=== PATIENT | female | born 1985 | race Caucasian/White ===

== ENCOUNTER 2020-12-23 16:14 | Emergency (ER) | payer SELFPAY ==
[~2020-12-23] VITALS: Ht 175.3 cm; Wt 68.7 kg
[~2020-12-23 16:14] MED LIST: INTRA UTERINE DEVICE
[2020-12-23] MEDS ORDERED: ULTRAM 50MG50 MG PO (16:33)
== END 2020-12-23 17:01 | disposition home or self-care (01) ==
LOC: ER 16:28
DX: N64.4 Mastodynia (principal); Z80.3 Family history of malignant neoplasm of breast
CPT/HCPCS: 99283

== ENCOUNTER 2021-05-02 19:40 | Inpatient (IN) | payer SELFPAY ==
[~2021-05-02] VITALS: Ht 149.9 cm; Wt 73.5 kg
[2021-05-02 00:15] VITALS: BP 140/90
[~2021-05-02 19:40] MED LIST changes: +ULTRAM 50MG50 MG PO
[2021-05-02] MEDS ORDERED: SODIUM CHLORIDE 0.9% 1000ML 1,000 ML IV STA (19:54)
[2021-05-02] MEDS ORDERED: DILTIAZEM HCL 125 ML IV STA (19:59)
[2021-05-02] MEDS ORDERED: DILTIAZEM HCL 5 MG/ML 5 ML VIAL IV STA (19:59)
[2021-05-02] MEDS ORDERED: ASPIRIN 81 MG CHEW TAB PO ONE (20:00)
[2021-05-02 20:14] LABS: BASOPHILS # (AUTO) 0.1 (0.0-0.1); EOSINOPHILS # (AUTO) 0.1 (0.0-0.4); EOSINOPHILS % 1.6 % (0.0-6.0); HEMATOCRIT 37.7 % (34.2-44.1); HEMOGLOBIN 12.1 g/dL (12.0-16.0); LYMPHOCYTES # (AUTO) 2.3 (1.0-3.2); MEAN CORPUSCULAR HEMOGLOBIN 27.6 pg (28-32); MEAN CORPUSCULAR HGB CONC 32.1 g/dL (31-35); MEAN CORPUSCULAR VOLUME 85.9 fL (81-99); MONOCYTES # (AUTO) 0.6 (0.2-0.8); MONOCYTES % 8.4 % (4.4-11.3); NEUTROPHILS # (AUTO) 3.9 (2.1-6.9); NEUTROPHILS % 55.7 % (38.7-80.0); PLATELET COUNT 279 x10e3/uL (140-360); RED BLOOD COUNT 4.39 x10e6/uL (3.6-5.1); RED CELL DISTRIBUTION WIDTH 16.1 % (11.7-14.4)
[2021-05-02 20:43] LABS: ALANINE AMINOTRANSFERASE 15 IU/L (0-55); ALBUMIN 4.3 g/dL (3.5-5.0); ALBUMIN/GLOBULIN RATIO 1.2 (0.8-2.0); ALKALINE PHOSPHATASE 60 IU/L (40-150); ANION GAP 19.6 mmol/L (8-16); BLOOD UREA NITROGEN 5 mg/dL (7-26); BUN/CREATININE RATIO 6 (6-25); CALCIUM 9.1 mg/dL (8.4-10.2); CARBON DIOXIDE 20 mmol/L (22-29); CHLORIDE 101 mmol/L (98-107); CREATINE KINASE 154 IU/L (29-168); CREATININE, SERUM 0.85 mg/dL (0.57-1.11); EST GLOMERULAR FILTRATION RATE 76 ML/MIN (60-); GLUCOSE 127 mg/dL (74-118); SODIUM 138 mmol/L (136-145)
[2021-05-02 21:06] LABS: POTASSIUM 2.6 mmol/L (3.5-5.1)
[2021-05-02] MEDS ORDERED: POTASSIUM CHLORIDE 20 MEQ TAB CR PO STA (21:11)
[2021-05-02] MEDS ORDERED: IOPAMIDOL 370 MG/ML 200 ML INFUS..BTL INJ ONE (21:23)
[2021-05-02] MEDS ORDERED: SODIUM CHLORIDE 0.9% 50ML 50 ML ONE (21:23)
[2021-05-02] MEDS ORDERED: ONDANSETRON HCL INJ 2MG/ML 2ML 2 MG/ML VIAL IV PRN (21:30)
[2021-05-02] MEDS ORDERED: MORPHINE SULFATE INJ 2 MG/ML SYR IV PRN (21:30)
[2021-05-03] VITALS: BP 155/102
[2021-05-03 00:15] VITALS: BP 155/102
[2021-05-03] MEDS: SODIUM CHLORIDE 0.9% 1000ML 1,000 ML IV SCH ×2 (01:00→05:30)
[2021-05-03 04:00] VITALS: BP 143/100
[2021-05-03 07:00] VITALS: BP 147/103
[2021-05-03 07:30] LABS: BASOPHILS # (AUTO) 0.1 (0.0-0.1); BASOPHILS % 1.1 % (0.0-1.0); EOSINOPHILS # (AUTO) 0.1 (0.0-0.4); EOSINOPHILS % 1.6 % (0.0-6.0); HEMATOCRIT 35.1 % (34.2-44.1); HEMOGLOBIN 10.9 g/dL (12.0-16.0); LYMPHOCYTES # (AUTO) 2.1 (1.0-3.2); LYMPHOCYTES % 33.5 % (18.0-39.1); MEAN CORPUSCULAR HEMOGLOBIN 27.5 pg (28-32); MEAN CORPUSCULAR HGB CONC 31.1 g/dL (31-35); MEAN CORPUSCULAR VOLUME 88.6 fL (81-99); MONOCYTES # (AUTO) 0.6 (0.2-0.8); MONOCYTES % 9.1 % (4.4-11.3); NEUTROPHILS # (AUTO) 3.4 (2.1-6.9); NEUTROPHILS % 54.5 % (38.7-80.0); PLATELET COUNT 241 x10e3/uL (140-360); RED BLOOD COUNT 3.96 x10e6/uL (3.6-5.1); RED CELL DISTRIBUTION WIDTH 16.6 % (11.7-14.4)
[2021-05-03 08:06] LABS: ALBUMIN 3.9 g/dL (3.5-5.0); ALBUMIN/GLOBULIN RATIO 1.3 (0.8-2.0); ANION GAP 14.1 mmol/L (8-16); CALCIUM 8.3 mg/dL (8.4-10.2); CREATININE, SERUM 0.78 mg/dL (0.57-1.11); POTASSIUM 3.1 mmol/L (3.5-5.1)
[2021-05-03] MEDS ORDERED: POTASSIUM CHLORIDE 10MEQ EA PO NR ×2 (08:30→10:30)
[2021-05-03] MEDS ORDERED: MAGNESIUM OXIDE 400 MG TAB PO NR (08:30)
[2021-05-03] MEDS ORDERED: BENADRYL25 M1 PO (08:36)
[2021-05-03] MEDS ORDERED: IBUPROFEN200 MG PO (08:36)
[2021-05-03] MEDS ORDERED: ALEVE220 M1 (08:36)
[2021-05-03] MEDS ORDERED: SUDAFED PE HEA PO (08:36)
[2021-05-03 10:18] LABS: AMPHETAMINES SCREEN,URINE NEGATIVE (NEGATIVE); BENZODIAZEPINES SCREEN,URINE NEGATIVE (NEGATIVE); PHENCYCLIDINE SCREEN,URINE NEGATIVE (NEGATIVE)
[2021-05-03 10:22] LABS: CREATINE KINASE MB 1.4 ng/mL (0-5.0)
[2021-05-03 10:25] LABS: CLARITY,URINE CLEAR (CLEAR); COLOR,URINE YELLOW (YELLOW); KETONES,URINE NEGATIVE (NEGATIVE); LEUKOCYTE ESTERASE ,URINE NEGATIVE (NEGATIVE); NITRITE,URINE NEGATIVE (NEGATIVE); PROTEIN,URINE DIPSTICK NEGATIVE (NEGATIVE); URINE UROBILINOGEN 0.2 mg/dL (0.2 - 1)
[2021-05-03 10:41] LABS: EPITHELIAL CELLS,URINE RARE /LPF; MUCUS,URINE FEW (RARE)
[2021-05-03 11:14] VITALS: BP 141/94
[2021-05-03] MEDS ORDERED: COZAAR25 MG PO (11:58)
[2021-05-03] MEDS ORDERED: LOSARTAN POTASSIUM 25 MG TAB PO SCH (12:30)
[2021-05-03 15:30] VITALS: BP 144/96
[2021-05-03 15:42] LABS: ANION GAP 14.2 mmol/L (8-16); CALCIUM 8.7 mg/dL (8.4-10.2); CREATININE, SERUM 0.68 mg/dL (0.57-1.11); POTASSIUM 4.2 mmol/L (3.5-5.1)
[2021-05-03 16:32] LABS: CREATINE KINASE MB 1.4 ng/mL (0-5.0)
== END 2021-05-03 16:20 | disposition home or self-care (01) | DRG 310 ==
LOC: ER 19:59 → ERHOLD 21:56 → MED/SURG 05-03 00:16 → OBSVTOIN 05-03 08:40
PROVIDERS: ADMIT Internal Medicine; ATTEND Internal Medicine
DX: I48.91 Unspecified atrial fibrillation (principal); Z79.01 Long term (current) use of anticoagulants; I48.92 Unspecified atrial flutter; E87.6 Hypokalemia; E83.42 Hypomagnesemia; E66.01 Morbid (severe) obesity due to excess calories; Z68.32 Body mass index [BMI] 32.0-32.9, adult; Z20.822 Contact with and (suspected) exposure to COVID-19; R21 Rash and other nonspecific skin eruption; I44.30 Unspecified atrioventricular block
CPT/HCPCS: 36415; 71260; 74177; 80048; 80053; 80307; 80320; 81001; 81025; 82465; 82550; 82553; 83690; 83735; 83880; 84443; 84484; 85025; 85379; 93005; 93306; 99284; G0378; J2270; J2405; J7030; Q9967; U0002

== ENCOUNTER 2021-05-30 09:57 | Emergency (ER) | payer SELFPAY ==
[~2021-05-30] VITALS: Ht 302.3 cm; Wt 73.5 kg
[~2021-05-30 09:57] MED LIST changes: +ALEVE220 M1; +BENADRYL25 M1 PO; +COZAAR25 MG PO; +IBUPROFEN200 MG PO; +SUDAFED PE HEA PO
[2021-05-30] MEDS ORDERED: SODIUM CHLORIDE 0.9% 1000ML 1,000 ML IV STA (10:25)
[2021-05-30 10:54] LABS: BASOPHILS # (AUTO) 0.1 (0.0-0.1); BASOPHILS % 1.4 % (0.0-1.0); EOSINOPHILS # (AUTO) 0.2 (0.0-0.4); EOSINOPHILS % 2.8 % (0.0-6.0); HEMATOCRIT 39.2 % (34.2-44.1); HEMOGLOBIN 12.1 g/dL (12.0-16.0); LYMPHOCYTES # (AUTO) 2.4 (1.0-3.2); LYMPHOCYTES % 27.7 % (18.0-39.1); MEAN CORPUSCULAR HEMOGLOBIN 27.2 pg (28-32); MEAN CORPUSCULAR HGB CONC 30.9 g/dL (31-35); MEAN CORPUSCULAR VOLUME 88.1 fL (81-99); MONOCYTES # (AUTO) 0.5 (0.2-0.8); MONOCYTES % 5.8 % (4.4-11.3); NEUTROPHILS # (AUTO) 5.3 (2.1-6.9); NEUTROPHILS % 62.1 % (38.7-80.0); PLATELET COUNT 398 x10e3/uL (140-360); RED BLOOD COUNT 4.45 x10e6/uL (3.6-5.1); RED CELL DISTRIBUTION WIDTH 18.8 % (11.7-14.4)
[2021-05-30 11:06] LABS: CLARITY,URINE CLEAR (CLEAR); COLOR,URINE YELLOW (YELLOW); KETONES,URINE 2+ (NEGATIVE); LEUKOCYTE ESTERASE ,URINE NEGATIVE (NEGATIVE); NITRITE,URINE NEGATIVE (NEGATIVE); PROTEIN,URINE DIPSTICK 2+ (NEGATIVE); URINE UROBILINOGEN 0.2 mg/dL (0.2 - 1)
[2021-05-30 11:07] LABS: AMPHETAMINES SCREEN,URINE NEGATIVE (NEGATIVE); BENZODIAZEPINES SCREEN,URINE NEGATIVE (NEGATIVE); PHENCYCLIDINE SCREEN,URINE NEGATIVE (NEGATIVE)
[2021-05-30 11:19] LABS: ALANINE AMINOTRANSFERASE 22 IU/L (0-55); ALBUMIN 4.5 g/dL (3.5-5.0); ALBUMIN/GLOBULIN RATIO 1.3 (0.8-2.0); ALKALINE PHOSPHATASE 52 IU/L (40-150); ANION GAP 22.3 mmol/L (8-16); BLOOD UREA NITROGEN 11 mg/dL (7-26); BUN/CREATININE RATIO 14 (6-25); CALCIUM 8.7 mg/dL (8.4-10.2); CARBON DIOXIDE 17 mmol/L (22-29); CHLORIDE 106 mmol/L (98-107); CREATINE KINASE 163 IU/L (29-168); CREATININE, SERUM 0.78 mg/dL (0.57-1.11); EST GLOMERULAR FILTRATION RATE 84 ML/MIN (60-); GLUCOSE 61 mg/dL (74-118); MAGNESIUM 1.7 MG/DL (1.3-2.1); POTASSIUM 3.3 mmol/L (3.5-5.1); SODIUM 142 mmol/L (136-145)
[2021-05-30 11:36] LABS: BACTERIA,URINE RARE /HPF; EPITHELIAL CELLS,URINE FEW /LPF; RBC,URINE 0-5 /HPF (0-5)
[2021-05-30 11:39] LABS: THYROID STIMULATING HORMONE 0.249 uIU/mL (0.350-4.940)
[2021-05-30] MEDS ORDERED: PROPRANOLOL HCL 40 MG TAB PO ONE (12:30)
== END 2021-05-30 12:50 | disposition home or self-care (01) ==
LOC: ER 10:10
DX: M79.18 Myalgia, other site (principal); R53.1 Weakness; E05.90 Thyrotoxicosis, unspecified without thyrotoxic crisis or storm; I10 Essential (primary) hypertension; R94.31 Abnormal electrocardiogram [ECG] [EKG]; Z20.822 Contact with and (suspected) exposure to COVID-19
CPT/HCPCS: 36415; 80053; 80307; 81001; 82550; 82553; 83735; 84443; 84484; 85025; 93005; 99283; J7030; U0002

== ENCOUNTER 2021-07-17 01:15 | Emergency (ER) | payer BC ==
[~2021-07-17] VITALS: Ht 302.3 cm; Wt 73.5 kg
[2021-07-17 01:01] LABS: BASOPHILS # (AUTO) 0.1 (0.0-0.1); BASOPHILS % 1.4 % (0.0-1.0); EOSINOPHILS # (AUTO) 0.1 (0.0-0.4); HEMATOCRIT 39.6 % (34.2-44.1); HEMOGLOBIN 13.1 g/dL (12.0-16.0); LYMPHOCYTES # (AUTO) 2.9 (1.0-3.2); LYMPHOCYTES % 55.7 % (18.0-39.1); MEAN CORPUSCULAR HEMOGLOBIN 29.7 pg (28-32); MEAN CORPUSCULAR HGB CONC 33.1 g/dL (31-35); MEAN CORPUSCULAR VOLUME 89.8 fL (81-99); MONOCYTES # (AUTO) 0.4 (0.2-0.8); MONOCYTES % 8.3 % (4.4-11.3); NEUTROPHILS # (AUTO) 1.7 (2.1-6.9); NEUTROPHILS % 33.6 % (38.7-80.0); PLATELET COUNT 306 x10e3/uL (140-360); RED BLOOD COUNT 4.41 x10e6/uL (3.6-5.1); RED CELL DISTRIBUTION WIDTH 18.6 % (11.7-14.4)
[2021-07-17] MEDS ORDERED: SODIUM CHLORIDE 0.9% 1000ML 1,000 ML IV STA (01:19)
[2021-07-17 01:27] LABS: AMPHETAMINES SCREEN,URINE NEGATIVE (NEGATIVE); BENZODIAZEPINES SCREEN,URINE NEGATIVE (NEGATIVE); PHENCYCLIDINE SCREEN,URINE NEGATIVE (NEGATIVE)
[2021-07-17] MEDS ORDERED: ASPIRIN 81 MG CHEW TAB PO ONE (01:30)
[2021-07-17] MEDS ORDERED: KETOROLAC TROMETHAMINE 30 MG/ML VIAL IV STA (01:32)
[2021-07-17 01:47] LABS: ALBUMIN 4.1 g/dL (3.5-5.0); ALBUMIN/GLOBULIN RATIO 1.1 (0.8-2.0); CALCIUM 8.4 mg/dL (8.4-10.2); CREATININE, SERUM 0.8 mg/dL (0.57-1.11)
[2021-07-17 01:53] LABS: CREATINE KINASE MB 1.1 ng/mL (0-5.0)
[2021-07-17 07:00] LABS: AMPHETAMINES SCREEN,URINE NEGATIVE (NEGATIVE); BENZODIAZEPINES SCREEN,URINE NEGATIVE (NEGATIVE); PHENCYCLIDINE SCREEN,URINE NEGATIVE (NEGATIVE)
== END 2021-07-17 03:08 | disposition home or self-care (01) ==
LOC: ER 01:19
DX: R07.89 Other chest pain (principal); R10.13 Epigastric pain; I10 Essential (primary) hypertension; E07.9 Disorder of thyroid, unspecified; F10.129 Alcohol abuse with intoxication, unspecified; F17.210 Nicotine dependence, cigarettes, uncomplicated
CPT/HCPCS: 36415; 71045; 80053; 80307; 80320; 81025; 82550; 82553; 83880; 84484; 85025; 93005; 99284; J7030

== ENCOUNTER 2021-10-03 20:45 | Emergency (ER) | payer BC ==
[~2021-10-03] VITALS: Ht 302.3 cm; Wt 73.5 kg
[2021-10-03] MEDS ORDERED: LORAZEPAM INJ 2 MG/ML VIAL INJ STA (22:11)
[2021-10-03] MEDS ORDERED: SODIUM CHLORIDE 0.9% 1000ML 1,000 ML IV STA (22:12)
[2021-10-03 22:30] LABS: BASOPHILS # (AUTO) 0.1 (0.0-0.1); EOSINOPHILS % 0.2 % (0.0-6.0); HEMATOCRIT 34.9 % (34.2-44.1); HEMOGLOBIN 11.3 g/dL (12.0-16.0); LYMPHOCYTES # (AUTO) 1.9 (1.0-3.2); LYMPHOCYTES % 30.2 % (18.0-39.1); MEAN CORPUSCULAR HEMOGLOBIN 30.3 pg (28-32); MEAN CORPUSCULAR HGB CONC 32.4 g/dL (31-35); MEAN CORPUSCULAR VOLUME 93.6 fL (81-99); MONOCYTES # (AUTO) 0.5 (0.2-0.8); MONOCYTES % 8.6 % (4.4-11.3); NEUTROPHILS # (AUTO) 3.7 (2.1-6.9); NEUTROPHILS % 59.8 % (38.7-80.0); PLATELET COUNT 213 x10e3/uL (140-360); RED BLOOD COUNT 3.73 x10e6/uL (3.6-5.1); RED CELL DISTRIBUTION WIDTH 16.5 % (11.7-14.4)
[2021-10-03 22:34] LABS: AMPHETAMINES SCREEN,URINE NEGATIVE (NEGATIVE); BENZODIAZEPINES SCREEN,URINE NEGATIVE (NEGATIVE); CLARITY,URINE CLEAR (CLEAR); COLOR,URINE YELLOW (YELLOW); KETONES,URINE NEGATIVE (NEGATIVE); LEUKOCYTE ESTERASE ,URINE NEGATIVE (NEGATIVE); NITRITE,URINE NEGATIVE (NEGATIVE); PHENCYCLIDINE SCREEN,URINE NEGATIVE (NEGATIVE); PROTEIN,URINE DIPSTICK 1+ (NEGATIVE); URINE UROBILINOGEN 0.2 mg/dL (0.2 - 1)
[2021-10-03 22:38] LABS: INR 0.95; PROTHROMBIN TIME 13.4 seconds (11.9-14.5)
[2021-10-03 22:39] LABS: PARTIAL THROMBOPLASTIN TIME 31.5 seconds (23.8-35.5)
[2021-10-03 22:46] LABS: AMORPHOUS SEDIMENT,URINE FEW (FEW); BACTERIA,URINE FEW /HPF; EPITHELIAL CELLS,URINE FEW /LPF; RBC,URINE 0-5 /HPF (0-5); WBC,URINE (MAN) 0-5 /HPF (0-5)
[2021-10-03 22:48] LABS: ALANINE AMINOTRANSFERASE 54 IU/L (0-55); ALBUMIN 4.1 g/dL (3.5-5.0); ALBUMIN/GLOBULIN RATIO 1.1 (0.8-2.0); ALKALINE PHOSPHATASE 76 IU/L (40-150); ANION GAP 19.2 mmol/L (8-16); BLOOD UREA NITROGEN 12 mg/dL (7-26); BUN/CREATININE RATIO 15 (6-25); CALCIUM 8.9 mg/dL (8.4-10.2); CARBON DIOXIDE 20 mmol/L (22-29); CHLORIDE 104 mmol/L (98-107); CREATINE KINASE 283 IU/L (29-168); CREATININE, SERUM 0.81 mg/dL (0.57-1.11); EST GLOMERULAR FILTRATION RATE 80 ML/MIN (60-); GLUCOSE 103 mg/dL (74-118); POTASSIUM 4.2 mmol/L (3.5-5.1); SODIUM 139 mmol/L (136-145)
[2021-10-03 22:51] LABS: SALICYLATE < 5.0 mg/dL (0-30)
[2021-10-03 23:04] LABS: FREE T4 (FREE THYROXINE) 0.75 ng/dL (0.8-1.8); THYROID STIMULATING HORMONE 2.527 uIU/mL (0.350-4.940)
[2021-10-03] MEDS ORDERED: HYDROXYZINE HCL25 MG PO (23:57)
[2021-10-04] MEDS ORDERED: LORAZEPAM INJ 2 MG/ML VIAL IV ONE
== END 2021-10-04 02:22 | disposition home or self-care (01) ==
LOC: ER 21:36
DX: F41.0 Panic disorder [episodic paroxysmal anxiety] (principal); T37.8X5A Adverse effect of other specified systemic anti-infectives and antiparasitics, initial encounter; I10 Essential (primary) hypertension; I48.91 Unspecified atrial fibrillation; F41.9 Anxiety disorder, unspecified; R94.31 Abnormal electrocardiogram [ECG] [EKG]
CPT/HCPCS: 36415; 71045; 80053; 80307; 80329 ×2; 81001; 81025; 82550; 82553; 83880; 84439; 84443; 84484; 85025; 85610; 85730; 93005; 99284; J2060; J7030

== ENCOUNTER 2021-11-02 08:22 | Emergency (ER) | payer BC ==
[~2021-11-02] VITALS: Ht 175.3 cm; Wt 73.5 kg
[~2021-11-02 08:22] MED LIST changes: +HYDROXYZINE HCL25 MG PO
[2021-11-02] MEDS ORDERED: SODIUM CHLORIDE 0.9% 1000ML 1,000 ML IV ONE (09:00)
[2021-11-02 09:14] LABS: BASOPHILS # (AUTO) 0.1 (0.0-0.1); BASOPHILS % 1.2 % (0.0-1.0); EOSINOPHILS # (AUTO) 0.1 (0.0-0.4); HEMATOCRIT 37.3 % (34.2-44.1); HEMOGLOBIN 12.6 g/dL (12.0-16.0); LYMPHOCYTES # (AUTO) 1.3 (1.0-3.2); LYMPHOCYTES % 25.7 % (18.0-39.1); MEAN CORPUSCULAR HEMOGLOBIN 30.7 pg (28-32); MEAN CORPUSCULAR HGB CONC 33.8 g/dL (31-35); MEAN CORPUSCULAR VOLUME 90.8 fL (81-99); MONOCYTES # (AUTO) 0.5 (0.2-0.8); MONOCYTES % 8.8 % (4.4-11.3); NEUTROPHILS # (AUTO) 3.2 (2.1-6.9); NEUTROPHILS % 62.9 % (38.7-80.0); PLATELET COUNT 201 x10e3/uL (140-360); RED BLOOD COUNT 4.11 x10e6/uL (3.6-5.1); RED CELL DISTRIBUTION WIDTH 15.6 % (11.7-14.4)
[2021-11-02 09:46] LABS: ALBUMIN 3.6 g/dL (3.5-5.0); ALBUMIN/GLOBULIN RATIO 0.9 (0.8-2.0); CALCIUM 7.9 mg/dL (8.4-10.2); CREATININE, SERUM 0.85 mg/dL (0.57-1.11)
[2021-11-02 10:19] LABS: FREE T4 (FREE THYROXINE) 0.77 ng/dL (0.8-1.8); THYROID STIMULATING HORMONE 3.191 uIU/mL (0.350-4.940)
[2021-11-02] MEDS ORDERED: ONDANSETRON ODT4 MG PO (11:30)
[2021-11-02] MEDS ORDERED: POTASSIUM CHLORIDE 20 MEQ TAB CR PO ONE (11:30)
[2021-11-02 11:38] VITALS: BP 142/100
[2021-11-03] MEDS ORDERED: METHIMAZOLE5 MG PO (00:28)
[2021-11-03] MEDS ORDERED: PROPRANOLOL HCL80 MG PO (00:28)
[2021-11-04] MEDS ORDERED: REGLAN5 MG PO (08:44)
[2021-11-04] MEDS ORDERED: ONDANSETRON ODT4 MG PO (08:44)
[2021-11-04] MEDS ORDERED: PANTOPRAZOLE SO40 MG PO (08:44)
[2021-11-04] MEDS ORDERED: MAALOX MAXIMUM355 ML PO (08:57)
== END 2021-11-02 11:35 | disposition home or self-care (01) ==
LOC: ER 08:26
DX: R00.2 Palpitations (principal); R06.00 Dyspnea, unspecified; R07.89 Other chest pain; R11.2 Nausea with vomiting, unspecified; E87.6 Hypokalemia; I10 Essential (primary) hypertension; I48.91 Unspecified atrial fibrillation; E03.9 Hypothyroidism, unspecified; F41.9 Anxiety disorder, unspecified; Z20.822 Contact with and (suspected) exposure to COVID-19; R73.9 Hyperglycemia, unspecified
CPT/HCPCS: 36415; 71046; 80053; 84439; 84443; 84484; 84702; 85025; 93005; 99284; J7030; U0002

== ENCOUNTER 2021-11-02 14:41 | Inpatient (IN) | payer BC ==
[~2021-11-02] VITALS: Ht 175.3 cm; Wt 73.5 kg
[~2021-11-02 14:41] MED LIST changes: +ONDANSETRON ODT4 MG PO
[2021-11-02] MEDS ORDERED: ONDANSETRON HCL INJ 2MG/ML 2ML 2 MG/ML VIAL IV STA (15:34)
[2021-11-02] MEDS ORDERED: SODIUM CHLORIDE 0.9% 1000ML 1,000 ML IV STA (15:34)
[2021-11-02 15:44] LABS: BASOPHILS # (AUTO) 0.1 (0.0-0.1); BASOPHILS % 0.4 % (0.0-1.0); HEMATOCRIT 37.5 % (34.2-44.1); HEMOGLOBIN 12.5 g/dL (12.0-16.0); LYMPHOCYTES # (AUTO) 0.8 (1.0-3.2); LYMPHOCYTES % 5.8 % (18.0-39.1); MEAN CORPUSCULAR HEMOGLOBIN 30.9 pg (28-32); MEAN CORPUSCULAR HGB CONC 33.3 g/dL (31-35); MEAN CORPUSCULAR VOLUME 92.8 fL (81-99); MONOCYTES # (AUTO) 0.6 (0.2-0.8); NEUTROPHILS # (AUTO) 12.8 (2.1-6.9); NEUTROPHILS % 89.5 % (38.7-80.0); PLATELET COUNT 199 x10e3/uL (140-360); RED BLOOD COUNT 4.04 x10e6/uL (3.6-5.1); RED CELL DISTRIBUTION WIDTH 15.5 % (11.7-14.4)
[2021-11-02 15:54] LABS: INR 1.11; PROTHROMBIN TIME 15.1 seconds (11.9-14.5)
[2021-11-02 15:55] LABS: PARTIAL THROMBOPLASTIN TIME 28.3 seconds (23.8-35.5)
[2021-11-02 15:57] LABS: ALBUMIN 3.9 g/dL (3.5-5.0); ANION GAP 19.8 mmol/L (8-16); CALCIUM 8.4 mg/dL (8.4-10.2); CREATININE, SERUM 0.83 mg/dL (0.57-1.11); POTASSIUM 3.8 mmol/L (3.5-5.1)
[2021-11-02] MEDS ORDERED: SODIUM CHLORIDE 0.9% 50ML 50 ML ONE (16:25)
[2021-11-02] MEDS ORDERED: IOPAMIDOL 370 MG/ML 200 ML INFUS..BTL INJ ONE (16:26)
[2021-11-02] MEDS ORDERED: Morphine 4mg Syringe 4 MG/ML INJ IV PRN (17:45)
[2021-11-02] MEDS: D5.45%NS/KCL 20MEQ 1,000 ML IV SCH (18:04)
[2021-11-02] MEDS: ONDANSETRON HCL INJ 2MG/ML 2ML 2 MG/ML VIAL IV PRN ×2 (18:04→21:21)
[2021-11-02 20:18] VITALS: BP 140/94
[2021-11-02 21:00] VITALS: BP 140/94
[2021-11-02] MEDS: LOSARTAN POTASSIUM 25 MG TAB PO SCH (21:00)
[2021-11-02] MEDS: Morphine 2mg Syringe 2 MG/ML SYR IV PRN (21:21)
[2021-11-02 22:57] LABS: AMYLASE 62 U/L (25-125); LIPASE 107 U/L (8-78)
[2021-11-02 23:30] LABS: CLARITY,URINE CLEAR (CLEAR); COLOR,URINE YELLOW (YELLOW); KETONES,URINE NEGATIVE (NEGATIVE); LEUKOCYTE ESTERASE ,URINE NEGATIVE (NEGATIVE); NITRITE,URINE NEGATIVE (NEGATIVE); PROTEIN,URINE DIPSTICK 1+ (NEGATIVE); URINE UROBILINOGEN 1 mg/dL (0.2 - 1)
[2021-11-02 23:33] LABS: BACTERIA,URINE FEW /HPF; EPITHELIAL CELLS,URINE FEW /LPF; RBC,URINE 0-5 /HPF (0-5)
[2021-11-03] VITALS (8 sets, daily range): BP systolic 123–150; BP diastolic 88–105
[2021-11-03] MEDS: Morphine 2mg Syringe 2 MG/ML SYR IV PRN ×5 (00:06→22:08)
[2021-11-03] MEDS ORDERED: PROPRANOLOL HCL80 MG PO (00:28)
[2021-11-03] MEDS ORDERED: METHIMAZOLE5 MG PO (00:28)
[2021-11-03] MEDS ORDERED: SODIUM CHLORIDE 0.9% 1000ML 1,000 ML IV SCH (00:45)
[2021-11-03] MEDS ORDERED: HYDRALAZINE HCL 20 MG/ML VIAL IV PRN (00:45)
[2021-11-03] MEDS: LOSARTAN POTASSIUM 25 MG TAB PO SCH (00:48)
[2021-11-03] MEDS: D5.45%NS/KCL 20MEQ 1,000 ML IV SCH ×2 (01:45→03:29)
[2021-11-03] MEDS: ONDANSETRON HCL INJ 2MG/ML 2ML 2 MG/ML VIAL IV PRN ×2 (02:31→06:29)
[2021-11-03 05:01] LABS: BASOPHILS # (AUTO) 0.1 (0.0-0.1); BASOPHILS % 0.6 % (0.0-1.0); EOSINOPHILS % 0.2 % (0.0-6.0); HEMATOCRIT 33.3 % (34.2-44.1); HEMOGLOBIN 10.6 g/dL (12.0-16.0); LYMPHOCYTES # (AUTO) 2.2 (1.0-3.2); LYMPHOCYTES % 21.6 % (18.0-39.1); MEAN CORPUSCULAR HEMOGLOBIN 30.8 pg (28-32); MEAN CORPUSCULAR HGB CONC 31.8 g/dL (31-35); MEAN CORPUSCULAR VOLUME 96.8 fL (81-99); MONOCYTES # (AUTO) 0.8 (0.2-0.8); MONOCYTES % 7.7 % (4.4-11.3); NEUTROPHILS % 69.7 % (38.7-80.0); PLATELET COUNT 137 x10e3/uL (140-360); RED BLOOD COUNT 3.44 x10e6/uL (3.6-5.1)
[2021-11-03 05:23] LABS: ALBUMIN 3.4 g/dL (3.5-5.0); CALCIUM 7.7 mg/dL (8.4-10.2); CREATININE, SERUM 0.78 mg/dL (0.57-1.11)
[2021-11-03] MEDS ORDERED: POTASSIUM CHLORIDE 10MEQ/100ML 200 ML IV ONE (11:45)
[2021-11-03] MEDS ORDERED: POTASSIUM CHLORIDE 20 MEQ TAB CR PO ONE ×2 (12:00→12:15)
[2021-11-03] MEDS: Pantoprazole IV 40 MG in SODIUM CHLORIDE 0.9% 50ML 50 ML IV SCH ×3 (12:05→20:02)
[2021-11-03] MEDS: METOCLOPRAMIDE HCL 10 MG/2ML VIAL IV SCH ×3 (12:05→23:26)
[2021-11-03] MEDS ORDERED: D5.45%NS/KCL 20MEQ 1,000 ML IV SCH (12:30)
[2021-11-03] MEDS ORDERED: PROPOFOL IV EMULSION 10 MG/ML 20 ML VIAL ONE (12:54)
[2021-11-03] MEDS ORDERED: LIDOCAINE HCL 2% LOCAL INJ 5 ML SDV VIAL INJ ONE (12:54)
[2021-11-03] MEDS ORDERED: METOCLOPRAMIDE HCL 10 MG/2ML VIAL ONE (12:54)
[2021-11-03] MEDS ORDERED: MIDAZOLAM HCL 2 MG/2 ML VIAL ONE (13:20)
[2021-11-03] MEDS ORDERED: FENTANYL CITRATE/PF 100MCG/2 ML INJ ONE (13:20)
[2021-11-03 15:18] LABS: FREE T4 (FREE THYROXINE) 0.76 ng/dL (0.8-1.8)
[2021-11-04 00:03] VITALS: BP 138/104
[2021-11-04 00:43] LABS: FERRITIN 96.27 ng/mL (4.63-204.00)
[2021-11-04] MEDS: Morphine 2mg Syringe 2 MG/ML SYR IV PRN ×4 (00:44→08:21)
[2021-11-04] MEDS: Pantoprazole IV 40 MG in SODIUM CHLORIDE 0.9% 50ML 50 ML IV SCH ×2 (02:00→06:14)
[2021-11-04] MEDS: ONDANSETRON HCL INJ 2MG/ML 2ML 2 MG/ML VIAL IV PRN ×2 (03:25→08:21)
[2021-11-04 04:00] VITALS: BP 157/111
[2021-11-04] MEDS: METOCLOPRAMIDE HCL 10 MG/2ML VIAL IV SCH (05:35)
[2021-11-04 06:00] LABS: BASOPHILS # (AUTO) 0.1 (0.0-0.1); BASOPHILS % 1.1 % (0.0-1.0); EOSINOPHILS # (AUTO) 0.2 (0.0-0.4); EOSINOPHILS % 2.8 % (0.0-6.0); HEMOGLOBIN 10.4 g/dL (12.0-16.0); LYMPHOCYTES # (AUTO) 2.1 (1.0-3.2); LYMPHOCYTES % 38.4 % (18.0-39.1); MEAN CORPUSCULAR HEMOGLOBIN 30.6 pg (28-32); MEAN CORPUSCULAR HGB CONC 31.5 g/dL (31-35); MEAN CORPUSCULAR VOLUME 97.1 fL (81-99); MONOCYTES # (AUTO) 0.4 (0.2-0.8); MONOCYTES % 6.9 % (4.4-11.3); NEUTROPHILS # (AUTO) 2.7 (2.1-6.9); NEUTROPHILS % 50.4 % (38.7-80.0); PLATELET COUNT 133 x10e3/uL (140-360); RED CELL DISTRIBUTION WIDTH 15.5 % (11.7-14.4)
[2021-11-04 06:21] LABS: ALANINE AMINOTRANSFERASE 45 IU/L (0-55); ALBUMIN 3.2 g/dL (3.5-5.0); ALKALINE PHOSPHATASE 77 IU/L (40-150); ANION GAP 12.2 mmol/L (8-16); BLOOD UREA NITROGEN < 5 mg/dL (7-26); BUN/CREATININE RATIO 7 (6-25); CALCIUM 7.5 mg/dL (8.4-10.2); CARBON DIOXIDE 24 mmol/L (22-29); CHLORIDE 104 mmol/L (98-107); CREATININE, SERUM 0.73 mg/dL (0.57-1.11); EST GLOMERULAR FILTRATION RATE 90 ML/MIN (60-); GLUCOSE 97 mg/dL (74-118); MAGNESIUM 1.4 MG/DL (1.3-2.1); POTASSIUM 3.2 mmol/L (3.5-5.1); SODIUM 137 mmol/L (136-145)
[2021-11-04 08:00] VITALS: BP 136/100
[2021-11-04] MEDS ORDERED: PANTOPRAZOLE SO40 MG PO (08:44)
[2021-11-04] MEDS ORDERED: ONDANSETRON ODT4 MG PO (08:44)
[2021-11-04] MEDS ORDERED: REGLAN5 MG PO (08:44)
[2021-11-04] MEDS ORDERED: MAALOX MAXIMUM355 ML PO (08:57)
[2021-11-04] MEDS ORDERED: POTASSIUM CHLORIDE 20 MEQ TAB CR PO ONE (09:45)
[2021-11-04] MEDS ORDERED: MAGNESIUM OXIDE 400 MG TAB PO ONE (09:45)
[2021-11-04 10:27] VITALS: BP 136/100
[2021-11-04 10:28] VITALS: BP 136/100
== END 2021-11-04 10:54 | disposition home or self-care (01) | DRG 378 ==
LOC: ER 15:23 → ERHOLD 19:18 → MED/SURG3 20:24
PROVIDERS: ADMIT Internal Medicine; ATTEND Internal Medicine
PROC: 0DB78ZX Excision of Stomach, Pylorus, Via Natural or Artificial Opening Endoscopic, Diagnostic (ICD-10-PCS; principal; 2021-11-03 13:30)
DX: K29.71 Gastritis, unspecified, with bleeding (principal); K22.10 Ulcer of esophagus without bleeding; E66.9 Obesity, unspecified; Z68.23 Body mass index [BMI] 23.0-23.9, adult; F41.9 Anxiety disorder, unspecified; F32.A Depression, unspecified; I48.91 Unspecified atrial fibrillation; Z79.01 Long term (current) use of anticoagulants; M19.90 Unspecified osteoarthritis, unspecified site; K44.9 Diaphragmatic hernia without obstruction or gangrene; Z20.822 Contact with and (suspected) exposure to COVID-19
CPT/HCPCS: 36415; 43239; 74177; 76705; 80053; 81001; 82150; 82607; 82728; 83036; 83540; 83690; 83735; 84439; 84443; 84466; 84480; 85025; 85045; 85610; 85730; 86704; 86850; 86900; 87040; 87086; 88305; 88312; 93005; 96361; 99283; J2001; J2250; J2270; J2405; J2765; J3010; J7030; Q9967; U0002

== ENCOUNTER 2021-11-09 21:36 | Emergency (ER) | payer BC ==
[~2021-11-09] VITALS: Ht 175.3 cm; Wt 81.6 kg
[~2021-11-09 21:36] MED LIST changes: +MAALOX MAXIMUM355 ML PO; +METHIMAZOLE5 MG PO; +PANTOPRAZOLE SO40 MG PO; +PROPRANOLOL HCL80 MG PO; +REGLAN5 MG PO
[2021-11-09] MEDS ORDERED: MOTRIN200 MG PO (23:19)
[2021-11-09] MEDS ORDERED: CEPHALEXIN500 MG PO (23:19)
[2021-11-09 23:25] VITALS: BP 136/71
== END 2021-11-09 23:26 | disposition home or self-care (01) ==
LOC: ER 21:39
DX: M25.561 Pain in right knee (principal); I48.91 Unspecified atrial fibrillation; E03.9 Hypothyroidism, unspecified
CPT/HCPCS: 93971; 99283

== ENCOUNTER → 2021-11-22 | Outpatient (CLI) | payer BC ==
[~2021-11-22] MED LIST changes: +CEPHALEXIN500 MG PO; +MOTRIN200 MG PO
== END ==
LOC: NM 09:25
PROVIDERS: ATTEND Internal Medicine Gastroenterology
DX: R10.11 Right upper quadrant pain (principal); R14.0 Abdominal distension (gaseous)
CPT/HCPCS: 78227; A9537

== ENCOUNTER 2021-12-10 13:56 | Emergency (ER) | payer BC ==
[~2021-12-10] VITALS: Ht 175.3 cm; Wt 81.6 kg
[2021-12-10] MEDS ORDERED: ONDANSETRON HCL INJ 2MG/ML 2ML 2 MG/ML VIAL IV ONE (14:13)
[2021-12-10] MEDS ORDERED: SODIUM CHLORIDE 0.9% 1000ML 1,000 ML IV STA (14:13)
[2021-12-10 14:27] LABS: BASOPHILS # (AUTO) 0.1 (0.0-0.1); BASOPHILS % 1.4 % (0.0-1.0); EOSINOPHILS % 0.8 % (0.0-6.0); HEMATOCRIT 37.7 % (34.2-44.1); HEMOGLOBIN 12.7 g/dL (12.0-16.0); LYMPHOCYTES # (AUTO) 1.6 (1.0-3.2); LYMPHOCYTES % 30.9 % (18.0-39.1); MEAN CORPUSCULAR HEMOGLOBIN 30.2 pg (28-32); MEAN CORPUSCULAR HGB CONC 33.7 g/dL (31-35); MEAN CORPUSCULAR VOLUME 89.5 fL (81-99); MONOCYTES # (AUTO) 0.4 (0.2-0.8); MONOCYTES % 7.2 % (4.4-11.3); NEUTROPHILS # (AUTO) 3.1 (2.1-6.9); NEUTROPHILS % 59.7 % (38.7-80.0); PLATELET COUNT 352 x10e3/uL (140-360); RED BLOOD COUNT 4.21 x10e6/uL (3.6-5.1); RED CELL DISTRIBUTION WIDTH 14.8 % (11.7-14.4)
[2021-12-10 14:37] LABS: INR 1.19; PROTHROMBIN TIME 16.2 seconds (11.9-14.5)
[2021-12-10 14:38] LABS: PARTIAL THROMBOPLASTIN TIME 36.3 seconds (23.8-35.5)
[2021-12-10 14:46] LABS: ALANINE AMINOTRANSFERASE 32 IU/L (0-55); ALBUMIN 4.3 g/dL (3.5-5.0); ALBUMIN/GLOBULIN RATIO 1.2 (0.8-2.0); ALKALINE PHOSPHATASE 68 IU/L (40-150); BLOOD UREA NITROGEN 11 mg/dL (7-26); BUN/CREATININE RATIO 12 (6-25); CALCIUM 8.6 mg/dL (8.4-10.2); CARBON DIOXIDE 22 mmol/L (22-29); CHLORIDE 103 mmol/L (98-107); CREATINE KINASE 162 IU/L (29-168); EST GLOMERULAR FILTRATION RATE 70 ML/MIN (60-); GLUCOSE 116 mg/dL (74-118); MAGNESIUM 1.8 MG/DL (1.3-2.1); SODIUM 138 mmol/L (136-145)
[2021-12-10 15:06] LABS: THYROID STIMULATING HORMONE 1.044 uIU/mL (0.350-4.940)
[2021-12-10 16:08] VITALS: BP 142/70
== END 2021-12-10 16:10 | disposition home or self-care (01) ==
LOC: ER 14:02
DX: R07.89 Other chest pain (principal); R11.2 Nausea with vomiting, unspecified; F12.90 Cannabis use, unspecified, uncomplicated; I48.91 Unspecified atrial fibrillation; E03.9 Hypothyroidism, unspecified; E05.90 Thyrotoxicosis, unspecified without thyrotoxic crisis or storm; Z20.822 Contact with and (suspected) exposure to COVID-19
CPT/HCPCS: 36415; 71045; 80053; 82550; 82553; 83735; 83880; 84443; 84484; 85025; 85610; 85730; 93005; 99284; J2405; J7030; U0002

== ENCOUNTER → 2021-12-13 | Outpatient (CLI) | payer BC | LOC: DX 09:10 | PROVIDERS: ATTEND Internal Medicine Gastroenterology | DX: R10.84 Generalized abdominal pain (principal); R14.0 Abdominal distension (gaseous) | CPT/HCPCS: 74250 ==

== ENCOUNTER 2021-12-20 15:44 | Emergency (ER) | payer BC ==
[~2021-12-20] VITALS: Ht 175.3 cm; Wt 81.6 kg
[2021-12-20 17:20] LABS: BASOPHILS # (AUTO) 0.1 (0.0-0.1); BASOPHILS % 1.6 % (0.0-1.0); EOSINOPHILS # (AUTO) 0.1 (0.0-0.4); EOSINOPHILS % 1.1 % (0.0-6.0); HEMATOCRIT 39.3 % (34.2-44.1); LYMPHOCYTES # (AUTO) 2.4 (1.0-3.2); LYMPHOCYTES % 53.6 % (18.0-39.1); MEAN CORPUSCULAR HEMOGLOBIN 30.5 pg (28-32); MEAN CORPUSCULAR HGB CONC 33.1 g/dL (31-35); MEAN CORPUSCULAR VOLUME 92.3 fL (81-99); MONOCYTES # (AUTO) 0.3 (0.2-0.8); MONOCYTES % 6.7 % (4.4-11.3); NEUTROPHILS # (AUTO) 1.7 (2.1-6.9); PLATELET COUNT 316 x10e3/uL (140-360); RED BLOOD COUNT 4.26 x10e6/uL (3.6-5.1); RED CELL DISTRIBUTION WIDTH 15.5 % (11.7-14.4)
[2021-12-20 17:41] LABS: CLARITY,URINE CLEAR (CLEAR); COLOR,URINE YELLOW (YELLOW); KETONES,URINE NEGATIVE (NEGATIVE); LEUKOCYTE ESTERASE ,URINE NEGATIVE (NEGATIVE); NITRITE,URINE NEGATIVE (NEGATIVE); PROTEIN,URINE DIPSTICK 1+ (NEGATIVE); URINE UROBILINOGEN 0.2 mg/dL (0.2 - 1)
[2021-12-20 17:42] LABS: ALBUMIN 4.1 g/dL (3.5-5.0); ALBUMIN/GLOBULIN RATIO 1.1 (0.8-2.0); CALCIUM 8.2 mg/dL (8.4-10.2); CREATININE, SERUM 0.97 mg/dL (0.57-1.11)
[2021-12-20 17:45] LABS: AMPHETAMINES SCREEN,URINE NEGATIVE (NEGATIVE); BENZODIAZEPINES SCREEN,URINE POSITIVE (NEGATIVE); PHENCYCLIDINE SCREEN,URINE NEGATIVE (NEGATIVE)
[2021-12-20 18:02] LABS: FREE THYROXINE INDEX 1.6678 (1.4-3.8); THYROID STIMULATING HORMONE 1.107 uIU/mL (0.350-4.940)
[2021-12-20 18:06] LABS: BACTERIA,URINE MODERATE /HPF; EPITHELIAL CELLS,URINE MODERATE /LPF; RBC,URINE 0-5 /HPF (0-5); TRANSITIONAL EPI CELLS,URINE FEW; WBC,URINE (MAN) 0-5 /HPF (0-5)
== END 2021-12-20 18:30 | disposition home or self-care (01) ==
LOC: ER 16:00
DX: R53.83 Other fatigue (principal); E05.90 Thyrotoxicosis, unspecified without thyrotoxic crisis or storm; I48.91 Unspecified atrial fibrillation; R94.31 Abnormal electrocardiogram [ECG] [EKG]
CPT/HCPCS: 36415; 80053; 80307; 81001; 81025; 84436; 84443; 84479; 85025; 93005; 99283

== ENCOUNTER 2021-12-29 09:52 | Inpatient (IN) | payer BC ==
[~2021-12-29] VITALS: Ht 175.3 cm; Wt 79.8 kg
[2021-12-29] MEDS ORDERED: SODIUM CHLORIDE 0.9% 1000ML 1,000 ML IV STA ×2 (10:03→11:05)
[2021-12-29] MEDS ORDERED: ONDANSETRON HCL INJ 2MG/ML 2ML 2 MG/ML VIAL IV STA (10:05)
[2021-12-29 10:39] LABS: BASOPHILS # (AUTO) 0.1 (0.0-0.1); BASOPHILS % 1.2 % (0.0-1.0); HEMATOCRIT 40.8 % (34.2-44.1); HEMOGLOBIN 13.5 g/dL (12.0-16.0); LYMPHOCYTES # (AUTO) 1.3 (1.0-3.2); MEAN CORPUSCULAR HGB CONC 33.1 g/dL (31-35); MEAN CORPUSCULAR VOLUME 90.7 fL (81-99); MONOCYTES # (AUTO) 0.5 (0.2-0.8); MONOCYTES % 6.4 % (4.4-11.3); NEUTROPHILS # (AUTO) 6.1 (2.1-6.9); PLATELET COUNT 286 x10e3/uL (140-360); RED CELL DISTRIBUTION WIDTH 14.8 % (11.7-14.4)
[2021-12-29 10:50] LABS: INR 0.95; PROTHROMBIN TIME 13.5 seconds (11.9-14.5)
[2021-12-29 10:51] LABS: PARTIAL THROMBOPLASTIN TIME 27.5 seconds (23.8-35.5)
[2021-12-29 11:00] LABS: ALANINE AMINOTRANSFERASE 52 IU/L (0-55); ALBUMIN 4.3 g/dL (3.5-5.0); ALBUMIN/GLOBULIN RATIO 0.9 (0.8-2.0); ALKALINE PHOSPHATASE 84 IU/L (40-150); BLOOD UREA NITROGEN 8 mg/dL (7-26); BUN/CREATININE RATIO 6 (6-25); CARBON DIOXIDE 18 mmol/L (22-29); CHLORIDE 97 mmol/L (98-107); CREATINE KINASE 227 IU/L (29-168); CREATININE, SERUM 1.29 mg/dL (0.57-1.11); EST GLOMERULAR FILTRATION RATE 47 ML/MIN (60-); GLUCOSE 142 mg/dL (74-118); SODIUM 138 mmol/L (136-145)
[2021-12-29 11:20] LABS: FREE T4 (FREE THYROXINE) 0.82 ng/dL (0.8-1.8); THYROID STIMULATING HORMONE 4.683 uIU/mL (0.350-4.940)
[2021-12-29] MEDS ORDERED: PROMETHAZINE 25MG/ NS 50ML (IV) IV ONE (12:30)
[2021-12-29] MEDS: SODIUM CHLORIDE 0.9% 1000ML 1,000 ML IV SCH ×2 (12:51→21:00)
[2021-12-29] MEDS ORDERED: IOPAMIDOL 370 MG/ML 100 ML INFUS..BTL INJ ONE (13:13)
[2021-12-29] MEDS ORDERED: SODIUM CHLORIDE 0.9% 100 ML ONE (13:13)
[2021-12-29 13:33] LABS: BACTERIA,URINE RARE /HPF; CLARITY,URINE CLEAR (CLEAR); COLOR,URINE YELLOW (YELLOW); EPITHELIAL CELLS,URINE FEW /LPF; KETONES,URINE NEGATIVE (NEGATIVE); LEUKOCYTE ESTERASE ,URINE NEGATIVE (NEGATIVE); NITRITE,URINE NEGATIVE (NEGATIVE); PROTEIN,URINE DIPSTICK 2+ (NEGATIVE); RBC,URINE 0-5 /HPF (0-5); URINE UROBILINOGEN 0.2 mg/dL (0.2 - 1); WBC,URINE (MAN) 0-5 /HPF (0-5)
[2021-12-29 13:44] VITALS: BP 133/88
[2021-12-29 14:41] VITALS: BP 133/88
[2021-12-29 14:43] VITALS: BP 133/88
[2021-12-29] MEDS: ONDANSETRON HCL INJ 2MG/ML 2ML 2 MG/ML VIAL IV PRN ×2 (16:20→23:29)
[2021-12-29 16:23] VITALS: BP 126/87
[2021-12-29] MEDS ORDERED: CITALOPRAM HBR20 MG PO (16:40)
[2021-12-29] MEDS ORDERED: ALPRAZOLAM0.25 M1 PO (16:40)
[2021-12-29] MEDS ORDERED: ONDANSETRON ODT8 MG PO (16:40)
[2021-12-29] MEDS ORDERED: LOSARTAN POTASS25 MG PO (16:40)
[2021-12-29] MEDS ORDERED: REGLAN10 MG PO (16:40)
[2021-12-29] MEDS ORDERED: PANTOPRAZOLE SO40 MG PO (16:40)
[2021-12-29 18:13] LABS: HEMATOCRIT 33.1 % (34.2-44.1); HEMOGLOBIN 10.8 g/dL (12.0-16.0)
[2021-12-29] MEDS: METOCLOPRAMIDE HCL 10 MG/2ML VIAL IV SCH (18:15)
[2021-12-29 20:00] VITALS: BP 126/89
[2021-12-29] MEDS: LOSARTAN POTASSIUM 25 MG TAB PO SCH (21:02)
[2021-12-30] VITALS (8 sets, daily range): BP systolic 120–138; BP diastolic 80–90
[2021-12-30 00:46] LABS: % IRON SATURATION 34 % (15-50); IRON 172 ug/dL (50-170); TOTAL IRON BINDING CAPACITY 500 ug/dL (261-478); TRANSFERRIN 357 mg/dL (180-382)
[2021-12-30] MEDS: SODIUM CHLORIDE 0.9% 1000ML 1,000 ML IV SCH ×3 (04:30→20:45)
[2021-12-30] MEDS: ONDANSETRON HCL INJ 2MG/ML 2ML 2 MG/ML VIAL IV PRN ×4 (04:44→21:30)
[2021-12-30] MEDS ORDERED: ASPART INSULIN SC (04:58)
[2021-12-30] MEDS ORDERED: PEPCID20 MG PO (04:58)
[2021-12-30 05:36] LABS: ANION GAP 13.7 mmol/L (8-16); BLOOD UREA NITROGEN < 5 mg/dL (7-26); CALCIUM 8.9 mg/dL (8.4-10.2); CARBON DIOXIDE 21 mmol/L (22-29); CHLORIDE 105 mmol/L (98-107); EST GLOMERULAR FILTRATION RATE 70 ML/MIN (60-); GLUCOSE 93 mg/dL (74-118); SODIUM 137 mmol/L (136-145)
[2021-12-30 05:43] LABS: BASOPHILS # (AUTO) 0.1 (0.0-0.1); BASOPHILS % 1.5 % (0.0-1.0); HEMATOCRIT 35.6 % (34.2-44.1); HEMOGLOBIN 11.6 g/dL (12.0-16.0); LYMPHOCYTES # (AUTO) 2.1 (1.0-3.2); LYMPHOCYTES % 53.9 % (18.0-39.1); MEAN CORPUSCULAR HGB CONC 32.6 g/dL (31-35); MONOCYTES # (AUTO) 0.4 (0.2-0.8); MONOCYTES % 10.6 % (4.4-11.3); NEUTROPHILS # (AUTO) 1.3 (2.1-6.9); PLATELET COUNT 174 x10e3/uL (140-360); RED BLOOD COUNT 3.87 x10e6/uL (3.6-5.1); RED CELL DISTRIBUTION WIDTH 15.4 % (11.7-14.4)
[2021-12-30 05:56] LABS: BUN/CREATININE RATIO 6 (6-25)
[2021-12-30 05:59] LABS: POTASSIUM 2.7 mmol/L (3.5-5.1)
[2021-12-30] MEDS: METOCLOPRAMIDE HCL 10 MG/2ML VIAL IV SCH ×4 (06:00→16:49)
[2021-12-30] MEDS ORDERED: POTASSIUM CHLORIDE 20 MEQ TAB CR PO STA (06:09)
[2021-12-30 06:23] LABS: CLARITY,URINE CLEAR (CLEAR); COLOR,URINE YELLOW (YELLOW); KETONES,URINE NEGATIVE (NEGATIVE); LEUKOCYTE ESTERASE ,URINE NEGATIVE (NEGATIVE); NITRITE,URINE NEGATIVE (NEGATIVE); PROTEIN,URINE DIPSTICK NEGATIVE (NEGATIVE); URINE UROBILINOGEN 0.2 mg/dL (0.2 - 1)
[2021-12-30 07:02] LABS: BACTERIA,URINE RARE /HPF; EPITHELIAL CELLS,URINE RARE /LPF; WBC,URINE (MAN) 0-5 /HPF (0-5)
[2021-12-30] MEDS: METHIMAZOLE 5 MG TAB PO SCH (08:39)
[2021-12-30] MEDS: CITALOPRAM HYDROBROMIDE 20 MG TAB PO SCH (08:39)
[2021-12-30 08:59] LABS: HEMOGLOBIN 11.1 g/dL (12.0-16.0)
[2021-12-30 09:16] LABS: MAGNESIUM 1.7 MG/DL (1.3-2.1)
[2021-12-30 09:23] LABS: POTASSIUM 2.8 mmol/L (3.5-5.1)
[2021-12-30] MEDS ORDERED: POTASSIUM CHLORIDE 10MEQ/100ML 400 ML IV ONE (10:00)
[2021-12-30] MEDS ORDERED: MAGNESIUM SULFATE 2GM/50ML 50 ML IV ONE (10:00)
[2021-12-30] MEDS ORDERED: POTASSIUM CHLORIDE 20 MEQ TAB CR PO ONE (10:00)
[2021-12-30] MEDS ORDERED: SODIUM CHLORIDE 0.9% 250ML 250 ML ONE (10:06)
[2021-12-30] MEDS ORDERED: POTASSIUM CHLORIDE 20MEQ/100ML 200 ML IV ONE (11:15)
[2021-12-30] MEDS: PROPRANOLOL HCL 80 MG CAPCR PO SCH (12:27)
[2021-12-30 16:39] LABS: HEMATOCRIT 32.6 % (34.2-44.1); HEMOGLOBIN 10.4 g/dL (12.0-16.0)
[2021-12-30] MEDS: TRAMADOL HCL 50 MG TAB PO PRN (20:25)
[2021-12-30] MEDS: LOSARTAN POTASSIUM 25 MG TAB PO SCH (20:48)
[2021-12-31] VITALS (9 sets, daily range): BP systolic 127–134; BP diastolic 83–97
[2021-12-31] MEDS: METOCLOPRAMIDE HCL 10 MG/2ML VIAL IV SCH ×4 (00:37→17:45)
[2021-12-31] MEDS: TRAMADOL HCL 50 MG TAB PO PRN ×5 (00:37→22:01)
[2021-12-31] MEDS: SODIUM CHLORIDE 0.9% 1000ML 1,000 ML IV SCH ×3 (04:03→21:42)
[2021-12-31] MEDS: ONDANSETRON HCL INJ 2MG/ML 2ML 2 MG/ML VIAL IV PRN ×4 (04:52→21:59)
[2021-12-31] MEDS: ALPRAZOLAM 0.25 MG TAB PO PRN ×3 (04:52→16:37)
[2021-12-31 06:15] LABS: BASOPHILS # (AUTO) 0.1 (0.0-0.1); BASOPHILS % 1.5 % (0.0-1.0); EOSINOPHILS # (AUTO) 0.1 (0.0-0.4); EOSINOPHILS % 1.5 % (0.0-6.0); HEMOGLOBIN 9.6 g/dL (12.0-16.0); LYMPHOCYTES # (AUTO) 2.3 (1.0-3.2); LYMPHOCYTES % 57.7 % (18.0-39.1); MEAN CORPUSCULAR VOLUME 96.9 fL (81-99); MONOCYTES # (AUTO) 0.4 (0.2-0.8); MONOCYTES % 9.6 % (4.4-11.3); NEUTROPHILS # (AUTO) 1.2 (2.1-6.9); NEUTROPHILS % 29.4 % (38.7-80.0); PLATELET COUNT 147 x10e3/uL (140-360); RED CELL DISTRIBUTION WIDTH 15.9 % (11.7-14.4)
[2021-12-31 06:45] LABS: ALANINE AMINOTRANSFERASE 29 IU/L (0-55); ALBUMIN/GLOBULIN RATIO 1.1 (0.8-2.0); ALKALINE PHOSPHATASE 55 IU/L (40-150); ANION GAP 9.5 mmol/L (8-16); BLOOD UREA NITROGEN < 5 mg/dL (7-26); CALCIUM 7.1 mg/dL (8.4-10.2); CARBON DIOXIDE 22 mmol/L (22-29); CHLORIDE 110 mmol/L (98-107); CREATININE, SERUM 0.77 mg/dL (0.57-1.11); EST GLOMERULAR FILTRATION RATE 84 ML/MIN (60-); GLUCOSE 89 mg/dL (74-118); POTASSIUM 3.5 mmol/L (3.5-5.1); SODIUM 138 mmol/L (136-145)
[2021-12-31 06:52] LABS: BUN/CREATININE RATIO 6 (6-25)
[2021-12-31] MEDS: METHIMAZOLE 5 MG TAB PO SCH (07:30)
[2021-12-31] MEDS: CITALOPRAM HYDROBROMIDE 20 MG TAB PO SCH (09:00)
[2021-12-31] MEDS ORDERED: POTASSIUM CHLORIDE 20 MEQ TAB CR PO STA (11:59)
[2021-12-31] MEDS: PROPRANOLOL HCL 80 MG CAPCR PO SCH (12:30)
[2021-12-31 13:47] LABS: HEMATOCRIT 32.2 % (34.2-44.1); HEMOGLOBIN 10.1 g/dL (12.0-16.0)
[2021-12-31] MEDS: LOSARTAN POTASSIUM 25 MG TAB PO SCH (21:51)
[2022-01-01] MEDS: METOCLOPRAMIDE HCL 10 MG/2ML VIAL IV SCH ×4 (00:22→18:01)
[2022-01-01] MEDS: ALPRAZOLAM 0.25 MG TAB PO PRN ×3 (00:41→14:13)
[2022-01-01] MEDS: ONDANSETRON HCL INJ 2MG/ML 2ML 2 MG/ML VIAL IV PRN ×4 (04:53→22:40)
[2022-01-01] MEDS: TRAMADOL HCL 50 MG TAB PO PRN ×4 (05:08→22:40)
[2022-01-01 05:17] VITALS: BP 134/99
[2022-01-01] MEDS: SODIUM CHLORIDE 0.9% 1000ML 1,000 ML IV SCH (05:27)
[2022-01-01 05:43] LABS: BASOPHILS % 1.1 % (0.0-1.0); EOSINOPHILS # (AUTO) 0.1 (0.0-0.4); HEMOGLOBIN 9.7 g/dL (12.0-16.0); LYMPHOCYTES % 57.8 % (18.0-39.1); MEAN CORPUSCULAR HEMOGLOBIN 30.5 pg (28-32); MEAN CORPUSCULAR HGB CONC 32.3 g/dL (31-35); MEAN CORPUSCULAR VOLUME 94.3 fL (81-99); MONOCYTES # (AUTO) 0.3 (0.2-0.8); MONOCYTES % 8.3 % (4.4-11.3); NEUTROPHILS # (AUTO) 1.1 (2.1-6.9); NEUTROPHILS % 30.8 % (38.7-80.0); PLATELET COUNT 138 x10e3/uL (140-360); RED BLOOD COUNT 3.18 x10e6/uL (3.6-5.1); RED CELL DISTRIBUTION WIDTH 15.1 % (11.7-14.4)
[2022-01-01 06:03] LABS: ANION GAP 11.8 mmol/L (8-16); BLOOD UREA NITROGEN < 5 mg/dL (7-26); CALCIUM 7.4 mg/dL (8.4-10.2); CARBON DIOXIDE 24 mmol/L (22-29); CHLORIDE 109 mmol/L (98-107); CREATININE, SERUM 0.71 mg/dL (0.57-1.11); EST GLOMERULAR FILTRATION RATE 93 ML/MIN (60-); GLUCOSE 90 mg/dL (74-118); POTASSIUM 3.8 mmol/L (3.5-5.1); SODIUM 141 mmol/L (136-145)
[2022-01-01 06:06] LABS: BUN/CREATININE RATIO 7 (6-25)
[2022-01-01] MEDS: METHIMAZOLE 5 MG TAB PO SCH (06:09)
[2022-01-01] MEDS: CITALOPRAM HYDROBROMIDE 20 MG TAB PO SCH (09:29)
[2022-01-01 09:40] VITALS: BP 137/93
[2022-01-01] MEDS: PROPRANOLOL HCL 80 MG CAPCR PO SCH (12:00)
[2022-01-01] MEDS: LOPERAMIDE HCL 2 MG CAP PO PRN ×2 (12:15→16:56)
[2022-01-01] MEDS ORDERED: CHOLESTYRAMINE 4 GM PACKET PO SCH (17:00)
[2022-01-01 20:00] VITALS: BP 130/90
[2022-01-01] MEDS: Morphine 4mg Syringe 4 MG/ML INJ IV PRN (20:25)
[2022-01-01 21:00] VITALS: BP 130/90
[2022-01-01] MEDS: LOSARTAN POTASSIUM 25 MG TAB PO SCH (21:43)
[2022-01-01] MEDS: CHOLESTYRAMINE 4 GM PACKET PO SCH (21:43)
[2022-01-02] VITALS: BP 140/100
[2022-01-02] MEDS: METOCLOPRAMIDE HCL 10 MG/2ML VIAL IV SCH ×3 (00:17→13:53)
[2022-01-02] MEDS: Morphine 4mg Syringe 4 MG/ML INJ IV PRN ×3 (00:26→14:23)
[2022-01-02 04:00] VITALS: BP 123/87
[2022-01-02] MEDS: ONDANSETRON HCL INJ 2MG/ML 2ML 2 MG/ML VIAL IV PRN ×2 (04:42→14:23)
[2022-01-02 05:28] LABS: BASOPHILS % 0.8 % (0.0-1.0); EOSINOPHILS # (AUTO) 0.1 (0.0-0.4); EOSINOPHILS % 1.6 % (0.0-6.0); HEMOGLOBIN 9.6 g/dL (12.0-16.0); LYMPHOCYTES % 55.3 % (18.0-39.1); MEAN CORPUSCULAR HEMOGLOBIN 30.5 pg (28-32); MEAN CORPUSCULAR VOLUME 95.2 fL (81-99); MONOCYTES # (AUTO) 0.5 (0.2-0.8); MONOCYTES % 12.3 % (4.4-11.3); NEUTROPHILS # (AUTO) 1.1 (2.1-6.9); PLATELET COUNT 140 x10e3/uL (140-360); RED BLOOD COUNT 3.15 x10e6/uL (3.6-5.1); RED CELL DISTRIBUTION WIDTH 15.7 % (11.7-14.4)
[2022-01-02] MEDS: METHIMAZOLE 5 MG TAB PO SCH (05:39)
[2022-01-02 05:49] LABS: ALBUMIN 2.7 g/dL (3.5-5.0); ALBUMIN/GLOBULIN RATIO 0.9 (0.8-2.0); ANION GAP 10.6 mmol/L (8-16); CALCIUM 7.7 mg/dL (8.4-10.2); CREATININE, SERUM 0.76 mg/dL (0.57-1.11); MAGNESIUM 1.5 MG/DL (1.3-2.1); POTASSIUM 3.6 mmol/L (3.5-5.1)
[2022-01-02] MEDS ORDERED: MAGNESIUM SULFATE 2GM/50ML 50 ML IV ONE (09:00)
[2022-01-02 12:02] VITALS: BP 132/86
[2022-01-02] MEDS: CHOLESTYRAMINE 4 GM PACKET PO SCH (13:53)
[2022-01-02] MEDS: CITALOPRAM HYDROBROMIDE 20 MG TAB PO SCH (13:53)
[2022-01-02] MEDS: PROPRANOLOL HCL 80 MG CAPCR PO SCH (13:54)
[2022-01-02] MEDS: ALPRAZOLAM 0.25 MG TAB PO PRN (14:23)
[2022-01-02] MEDS: TRAMADOL HCL 50 MG TAB PO PRN (15:52)
[2022-01-02 16:00] VITALS: BP 124/99
[2022-01-02 17:48] VITALS: BP 124/99
[2022-01-02] MEDS ORDERED: PROMETHAZINE HC25 M1 PO (18:13)
== END 2022-01-02 18:40 | disposition home or self-care (01) | DRG 369 ==
LOC: ER 10:00 → ERHOLD 12:33 → MED/SURG 13:44 → OBSVTOIN 01-01 08:15
PROVIDERS: ADMIT Internal Medicine; ATTEND Internal Medicine
DX: K21.01 Gastro-esophageal reflux disease with esophagitis, with bleeding (principal); M62.82 Rhabdomyolysis; D62 Acute posthemorrhagic anemia; F41.9 Anxiety disorder, unspecified; Z87.891 Personal history of nicotine dependence; E66.9 Obesity, unspecified; Z68.26 Body mass index [BMI] 26.0-26.9, adult; K76.0 Fatty (change of) liver, not elsewhere classified; R19.7 Diarrhea, unspecified; I10 Essential (primary) hypertension; I48.91 Unspecified atrial fibrillation
CPT/HCPCS: 36415; 71045; 74174; 78227; 80048; 80053; 81001; 82150; 82550; 82553; 82746; 83540; 83605; 83690; 83735; 83880; 84132; 84439; 84443; 84466; 84484; 84702; 85014; 85018; 85025; 85045; 85610; 85730; 93005; 99284; A9537; G0378; J2270; J2405; J2550; J2765; J3475; J3480; J7030; J7050; Q9967; U0002

== ENCOUNTER 2022-03-06 09:21 | Emergency (ER) | payer BC ==
[~2022-03-06] VITALS: Ht 175.3 cm; Wt 79.8 kg
[~2022-03-06 09:21] MED LIST changes: +ALPRAZOLAM0.25 M1 PO; +ASPART INSULIN SC; +CITALOPRAM HBR20 MG PO; +LOSARTAN POTASS25 MG PO; +ONDANSETRON ODT8 MG PO; +PEPCID20 MG PO; +PROMETHAZINE HC25 M1 PO; +REGLAN10 MG PO
[2022-03-06] MEDS ORDERED: SODIUM CHLORIDE 0.9% 1000ML 1,000 ML IV STA (09:56)
[2022-03-06] MEDS ORDERED: PROMETHAZINE 25MG/ NS 50ML (IV) IV ONE (10:00)
[2022-03-06 10:38] LABS: BASOPHILS # (AUTO) 0.1 (0.0-0.1); BASOPHILS % 1.3 % (0.0-1.0); EOSINOPHILS % 0.2 % (0.0-6.0); HEMATOCRIT 37.4 % (34.2-44.1); HEMOGLOBIN 12.1 g/dL (12.0-16.0); LYMPHOCYTES # (AUTO) 1.3 (1.0-3.2); LYMPHOCYTES % 25.1 % (18.0-39.1); MEAN CORPUSCULAR HGB CONC 32.4 g/dL (31-35); MEAN CORPUSCULAR VOLUME 92.8 fL (81-99); MONOCYTES # (AUTO) 0.3 (0.2-0.8); MONOCYTES % 5.2 % (4.4-11.3); NEUTROPHILS # (AUTO) 3.5 (2.1-6.9); PLATELET COUNT 163 x10e3/uL (140-360); RED BLOOD COUNT 4.03 x10e6/uL (3.6-5.1)
[2022-03-06 10:59] LABS: LIPASE 172 U/L (8-78)
[2022-03-06 11:01] LABS: ALBUMIN 3.6 g/dL (3.5-5.0); ALBUMIN/GLOBULIN RATIO 0.8 (0.8-2.0); ANION GAP 22.3 mmol/L (8-16); CALCIUM 8.1 mg/dL (8.4-10.2); CREATININE, SERUM 0.98 mg/dL (0.57-1.11); POTASSIUM 3.3 mmol/L (3.5-5.1)
[2022-03-06] MEDS ORDERED: IOPAMIDOL 370 MG/ML 100 ML INFUS..BTL INJ ONE (11:23)
[2022-03-06 11:35] LABS: FREE T4 (FREE THYROXINE) 0.84 ng/dL (0.8-1.8); THYROID STIMULATING HORMONE 2.048 uIU/mL (0.350-4.940)
[2022-03-06] MEDS ORDERED: KETOROLAC TROMETHAMINE 30 MG/ML VIAL IV STA ×3 (12:07→12:08)
[2022-03-06] MEDS ORDERED: HALOPERIDOL LACTATE 5 MG/ML VIAL IV ONE (12:15)
[2022-03-06] MEDS ORDERED: PROMETHAZINE HC25 M1 PO (12:28)
== END 2022-03-06 12:40 | disposition home or self-care (01) ==
LOC: ER 09:25
DX: R11.11 Vomiting without nausea (principal); F12.90 Cannabis use, unspecified, uncomplicated; R10.13 Epigastric pain; E05.90 Thyrotoxicosis, unspecified without thyrotoxic crisis or storm; F17.200 Nicotine dependence, unspecified, uncomplicated; Z88.0 Allergy status to penicillin; Z88.8 Allergy status to other drugs, medicaments and biological substances; Z20.822 Contact with and (suspected) exposure to COVID-19
CPT/HCPCS: 36415; 70450; 71045; 74177; 80053; 83690; 84439; 84443; 84702; 85025; 93005; 99284; J1630; J1885; J2550; J7030; Q9967; U0002

== ENCOUNTER 2022-04-03 08:55 | Observation (INO) | payer BC ==
[~2022-04-03] VITALS: Ht 175.3 cm; Wt 99.3 kg
[2022-04-03] MEDS ORDERED: HYDRALAZINE HCL 20 MG/ML VIAL IV STA (09:05)
[2022-04-03] MEDS ORDERED: HALOPERIDOL LACTATE 5 MG/ML VIAL IV ONE (09:15)
[2022-04-03 09:46] LABS: BASOPHILS # (AUTO) 0.1 (0.0-0.1); BASOPHILS % 1.9 % (0.0-1.0); EOSINOPHILS # (AUTO) 0.1 (0.0-0.4); EOSINOPHILS % 1.7 % (0.0-6.0); HEMATOCRIT 36.2 % (34.2-44.1); HEMOGLOBIN 12.1 g/dL (12.0-16.0); LYMPHOCYTES # (AUTO) 1.5 (1.0-3.2); LYMPHOCYTES % 36.4 % (18.0-39.1); MEAN CORPUSCULAR HGB CONC 33.4 g/dL (31-35); MEAN CORPUSCULAR VOLUME 89.6 fL (81-99); MONOCYTES # (AUTO) 0.3 (0.2-0.8); MONOCYTES % 7.3 % (4.4-11.3); NEUTROPHILS # (AUTO) 2.2 (2.1-6.9); NEUTROPHILS % 52.5 % (38.7-80.0); PLATELET COUNT 213 x10e3/uL (140-360); RED BLOOD COUNT 4.04 x10e6/uL (3.6-5.1); RED CELL DISTRIBUTION WIDTH 14.6 % (11.7-14.4)
[2022-04-03 10:02] LABS: AMPHETAMINES SCREEN,URINE NEGATIVE (NEGATIVE); PHENCYCLIDINE SCREEN,URINE NEGATIVE (NEGATIVE)
[2022-04-03 10:03] LABS: BENZODIAZEPINES SCREEN,URINE NEGATIVE (NEGATIVE)
[2022-04-03 10:05] LABS: CLARITY,URINE CLEAR (CLEAR); COLOR,URINE YELLOW (YELLOW); KETONES,URINE NEGATIVE (NEGATIVE); LEUKOCYTE ESTERASE ,URINE NEGATIVE (NEGATIVE); NITRITE,URINE NEGATIVE (NEGATIVE); PROTEIN,URINE DIPSTICK NEGATIVE (NEGATIVE); URINE UROBILINOGEN 0.2 mg/dL (0.2 - 1)
[2022-04-03 10:06] LABS: ALBUMIN 3.7 g/dL (3.5-5.0); ALBUMIN/GLOBULIN RATIO 0.9 (0.8-2.0); ANION GAP 23.3 mmol/L (8-16); CALCIUM 7.6 mg/dL (8.4-10.2); CREATININE, SERUM 0.82 mg/dL (0.57-1.11); POTASSIUM 3.3 mmol/L (3.5-5.1)
[2022-04-03 10:08] LABS: BACTERIA,URINE FEW /HPF; RBC,URINE 0-5 /HPF (0-5)
[2022-04-03 10:11] LABS: EPITHELIAL CELLS,URINE MODERATE /LPF; TRICHOMONAS,URINE FEW
[2022-04-03 10:13] LABS: WBC,URINE (MAN) 0-5 /HPF (0-5)
[2022-04-03] MEDS ORDERED: SODIUM CHLORIDE 0.9% 1000ML 1,000 ML IV ONE (10:45)
[2022-04-03] MEDS ORDERED: AZITHROMYCIN 250 MG TAB PO ONE (11:00)
[2022-04-03] MEDS ORDERED: METRONIDAZOLE 500 MG TAB PO ONE (11:00)
[2022-04-03 11:07] LABS: SALICYLATE < 5.0 mg/dL (0-30)
[2022-04-03] MEDS ORDERED: CHLORDIAZEPOXIDE HCL 25 MG CAP PO ONE ×2 (11:45→12:30)
[2022-04-03] MEDS ORDERED: GENTAMICIN SULFATE 40 MG/ML 2 ML VIAL IM ONE (11:45)
[2022-04-03 14:19] LABS: ANION GAP 22.5 mmol/L (8-16); CALCIUM 7.5 mg/dL (8.4-10.2); CREATININE, SERUM 0.81 mg/dL (0.57-1.11); POTASSIUM 3.5 mmol/L (3.5-5.1)
[2022-04-03] MEDS ORDERED: SODIUM BICARBONATE 8.4% SYRING 150 ML in DEXTROSE 5% 1,000 ML IV ONE (15:30)
[2022-04-03] MEDS ORDERED: MULTIVITAMINS- 12 INJECTION 10 ML, FOLIC ACID MDV 1 MG, THIAMINE HCL INJ 100 MG in SODI... IV ONE (15:30)
[2022-04-03] MEDS ORDERED: ONDANSETRON HCL INJ 2MG/ML 2ML 2 MG/ML VIAL IV PRN (15:45)
[2022-04-03 17:47] VITALS: BP 160/113
[2022-04-03] MEDS ORDERED: LORATADINE10 MG PO (17:49)
[2022-04-03] MEDS ORDERED: VITAMIN D310 MCG PO (17:49)
[2022-04-03] MEDS ORDERED: POTASSIUM GLUCO90 MG PO (17:49)
[2022-04-03] MEDS ORDERED: METOCLOPRAMIDE10 MG PO (17:49)
[2022-04-03 17:56] VITALS: BP 160/113
[2022-04-03 18:01] VITALS: BP 153/99
[2022-04-03 19:48] VITALS: BP 137/84
[2022-04-03 21:00] VITALS: BP 137/84
[2022-04-03] MEDS: CHLORDIAZEPOXIDE HCL 25 MG CAP PO SCH (21:03)
[2022-04-03 21:27] LABS: ANION GAP 16.2 mmol/L (8-16); CALCIUM 7.5 mg/dL (8.4-10.2); CREATININE, SERUM 0.89 mg/dL (0.57-1.11); POTASSIUM 3.2 mmol/L (3.5-5.1)
[2022-04-03] MEDS ORDERED: LOSARTAN POTASSIUM 25 MG TAB PO SCH (22:00)
[2022-04-03] MEDS ORDERED: ALPRAZOLAM 0.5 MG TAB PO PRN (22:00)
[2022-04-03] MEDS ORDERED: LOPERAMIDE HCL 2 MG CAP PO ONE (22:15)
[2022-04-03] MEDS ORDERED: LOPERAMIDE HCL 2 MG CAP PO PRN (22:15)
[2022-04-04 00:52] VITALS: BP 136/86
[2022-04-04 04:00] VITALS: BP 123/83
[2022-04-04] MEDS: CHLORDIAZEPOXIDE HCL 25 MG CAP PO SCH (05:49)
[2022-04-04 05:50] LABS: BASOPHILS % 0.8 % (0.0-1.0); EOSINOPHILS # (AUTO) 0.1 (0.0-0.4); EOSINOPHILS % 2.9 % (0.0-6.0); HEMATOCRIT 31.8 % (34.2-44.1); HEMOGLOBIN 10.3 g/dL (12.0-16.0); LYMPHOCYTES % 41.2 % (18.0-39.1); MEAN CORPUSCULAR HGB CONC 32.4 g/dL (31-35); MEAN CORPUSCULAR VOLUME 89.6 fL (81-99); MONOCYTES # (AUTO) 0.5 (0.2-0.8); MONOCYTES % 11.1 % (4.4-11.3); NEUTROPHILS # (AUTO) 2.1 (2.1-6.9); NEUTROPHILS % 43.8 % (38.7-80.0); PLATELET COUNT 157 x10e3/uL (140-360); RED BLOOD COUNT 3.55 x10e6/uL (3.6-5.1); RED CELL DISTRIBUTION WIDTH 15.2 % (11.7-14.4)
[2022-04-04 06:23] LABS: ALBUMIN 3.1 g/dL (3.5-5.0); ALBUMIN/GLOBULIN RATIO 0.9 (0.8-2.0); ANION GAP 14.2 mmol/L (8-16); CALCIUM 7.3 mg/dL (8.4-10.2); CREATININE, SERUM 0.86 mg/dL (0.57-1.11); MAGNESIUM 1.5 MG/DL (1.3-2.1); POTASSIUM 3.2 mmol/L (3.5-5.1)
[2022-04-04] MEDS ORDERED: METHIMAZOLE 5 MG TAB PO SCH (07:30)
[2022-04-04 07:33] LABS: FREE THYROXINE INDEX 1.8929 (1.4-3.8); THYROID STIMULATING HORMONE 4.091 uIU/mL (0.350-4.940)
[2022-04-04] MEDS ORDERED: POTASSIUM CHLORIDE 20 MEQ TAB CR PO NR (08:30)
[2022-04-04 08:32] VITALS: BP 121/82
[2022-04-04] MEDS ORDERED: CHLORDIAZEPOXID25 MG PO (08:59)
[2022-04-04] MEDS ORDERED: B-1100 MG PO (08:59)
[2022-04-04] MEDS ORDERED: PANTOPRAZOLE SOD 40 MG TABEC PO SCH (09:00)
[2022-04-04] MEDS ORDERED: LORATADINE 10 MG TAB PO SCH (09:00)
[2022-04-04] MEDS ORDERED: THIAMINE HCL 100 MG TAB PO SCH (09:00)
[2022-04-04] MEDS ORDERED: CITALOPRAM HYDROBROMIDE 20 MG TAB PO SCH (09:00)
[2022-04-04 10:12] VITALS: BP 121/82
[2022-04-04] MEDS ORDERED: PROPRANOLOL HCL 80 MG CAPCR PO SCH (11:30)
[2022-04-04 12:09] VITALS: BP 127/86
== END 2022-04-04 12:21 | disposition home or self-care (01) ==
LOC: ER 08:59 → ERHOLD 15:42 → MED/SURG2 17:32
PROVIDERS: ADMIT Internal Medicine; ATTEND Internal Medicine
DX: F10.929 Alcohol use, unspecified with intoxication, unspecified (principal); E86.9 Volume depletion, unspecified; E03.9 Hypothyroidism, unspecified; I10 Essential (primary) hypertension; F41.9 Anxiety disorder, unspecified; E87.6 Hypokalemia; E87.4 Mixed disorder of acid-base balance
CPT/HCPCS: 0223U; 36415 ×2; 71046; 74018; 80048; 80053 ×2; 80307; 80320; 80329; 81001; 83605; 83690; 83735; 84436; 84443; 84479; 84484; 84702; 85025 ×2; 87040; 87045; 93005; 99285; G0378 ×2; J0360; J1580; J1630; J3411 ×2; J7030; J7070; S0164

== ENCOUNTER 2022-05-08 13:05 | Emergency (ER) | payer BC ==
[~2022-05-08] VITALS: Ht 175.3 cm; Wt 99.3 kg
[~2022-05-08 13:05] MED LIST changes: +B-1100 MG PO; +CHLORDIAZEPOXID25 MG PO; +LORATADINE10 MG PO; +METOCLOPRAMIDE10 MG PO; +POTASSIUM GLUCO90 MG PO; +VITAMIN D310 MCG PO
[2022-05-08 14:06] LABS: BASOPHILS # (AUTO) 0.1 (0.0-0.1); BASOPHILS % 2.4 % (0.0-1.0); EOSINOPHILS # (AUTO) 0.2 (0.0-0.4); HEMATOCRIT 39.5 % (34.2-44.1); HEMOGLOBIN 12.6 g/dL (12.0-16.0); LYMPHOCYTES # (AUTO) 1.7 (1.0-3.2); LYMPHOCYTES % 38.2 % (18.0-39.1); MEAN CORPUSCULAR HEMOGLOBIN 28.6 pg (28-32); MEAN CORPUSCULAR HGB CONC 31.9 g/dL (31-35); MEAN CORPUSCULAR VOLUME 89.6 fL (81-99); MONOCYTES # (AUTO) 0.4 (0.2-0.8); MONOCYTES % 9.8 % (4.4-11.3); NEUTROPHILS # (AUTO) 2.1 (2.1-6.9); NEUTROPHILS % 45.6 % (38.7-80.0); PLATELET COUNT 232 x10e3/uL (140-360); RED BLOOD COUNT 4.41 x10e6/uL (3.6-5.1); RED CELL DISTRIBUTION WIDTH 14.9 % (11.7-14.4)
[2022-05-08 14:16] LABS: AMPHETAMINES SCREEN,URINE NEGATIVE (NEGATIVE); BENZODIAZEPINES SCREEN,URINE POSITIVE (NEGATIVE); CLARITY,URINE CLEAR (CLEAR); COLOR,URINE YELLOW (YELLOW); KETONES,URINE NEGATIVE (NEGATIVE); LEUKOCYTE ESTERASE ,URINE NEGATIVE (NEGATIVE); NITRITE,URINE NEGATIVE (NEGATIVE); PHENCYCLIDINE SCREEN,URINE NEGATIVE (NEGATIVE); PROTEIN,URINE DIPSTICK NEGATIVE (NEGATIVE); URINE UROBILINOGEN 0.2 mg/dL (0.2 - 1)
[2022-05-08 14:19] LABS: INR 0.97; PROTHROMBIN TIME 13.8 seconds (11.9-14.5)
[2022-05-08 14:25] LABS: ALBUMIN 3.9 g/dL (3.5-5.0); ANION GAP 15.9 mmol/L (8-16); CALCIUM 8.5 mg/dL (8.4-10.2); CREATININE, SERUM 0.89 mg/dL (0.57-1.11); POTASSIUM 3.9 mmol/L (3.5-5.1)
[2022-05-08 14:30] LABS: BACTERIA,URINE FEW /HPF; WBC,URINE (MAN) 0-5 /HPF (0-5)
[2022-05-08 14:31] LABS: EPITHELIAL CELLS,URINE FEW /LPF
[2022-05-08 14:56] LABS: SALICYLATE < 5.0 mg/dL (0-30)
[2022-05-08 15:52] VITALS: BP 130/71
== END 2022-05-08 15:53 | disposition home or self-care (01) ==
LOC: ER 13:09
DX: F10.129 Alcohol abuse with intoxication, unspecified (principal); I10 Essential (primary) hypertension; I48.91 Unspecified atrial fibrillation; E05.90 Thyrotoxicosis, unspecified without thyrotoxic crisis or storm; F41.9 Anxiety disorder, unspecified; F32.A Depression, unspecified
CPT/HCPCS: 36415; 70450; 80053; 80307; 80320; 80329; 81001; 82948; 84484; 85025; 85610; 93005; 99284

== ENCOUNTER 2022-10-22 22:57 | Emergency (ER) | payer BC ==
[~2022-10-22] VITALS: Ht 175.3 cm; Wt 99.3 kg
[2022-10-22] MEDS ORDERED: METOPROLOL TARTRATE INJ 1 MG/ML VIAL IV ONE (23:30)
[2022-10-22 23:35] LABS: BASOPHILS # (AUTO) 0.1 (0.0-0.1); BASOPHILS % 1.5 % (0.0-1.0); EOSINOPHILS % 0.4 % (0.0-6.0); HEMATOCRIT 37.9 % (34.2-44.1); HEMOGLOBIN 11.8 g/dL (12.0-16.0); LYMPHOCYTES # (AUTO) 1.9 (1.0-3.2); LYMPHOCYTES % 35.1 % (18.0-39.1); MEAN CORPUSCULAR HEMOGLOBIN 27.3 pg (28-32); MEAN CORPUSCULAR HGB CONC 31.1 g/dL (31-35); MEAN CORPUSCULAR VOLUME 87.7 fL (81-99); MONOCYTES # (AUTO) 0.3 (0.2-0.8); MONOCYTES % 4.8 % (4.4-11.3); NEUTROPHILS # (AUTO) 3.1 (2.1-6.9); PLATELET COUNT 323 x10e3/uL (140-360); RED BLOOD COUNT 4.32 x10e6/uL (3.6-5.1); RED CELL DISTRIBUTION WIDTH 16.5 % (11.7-14.4)
[2022-10-22 23:39] LABS: AMPHETAMINES SCREEN,URINE NEGATIVE (NEGATIVE); BENZODIAZEPINES SCREEN,URINE NEGATIVE (NEGATIVE); CLARITY,URINE SL CLOUDY (CLEAR); COLOR,URINE YELLOW (YELLOW); KETONES,URINE NEGATIVE (NEGATIVE); LEUKOCYTE ESTERASE ,URINE NEGATIVE (NEGATIVE); NITRITE,URINE NEGATIVE (NEGATIVE); PHENCYCLIDINE SCREEN,URINE NEGATIVE (NEGATIVE); PROTEIN,URINE DIPSTICK NEGATIVE (NEGATIVE)
[2022-10-22 23:40] LABS: URINE UROBILINOGEN 0.2 mg/dL (0.2 - 1)
[2022-10-22] MEDS ORDERED: ONDANSETRON HCL INJ 2MG/ML 2ML 2 MG/ML VIAL IV STA (23:51)
[2022-10-22 23:53] LABS: ALBUMIN 3.8 g/dL (3.5-5.0); ANION GAP 18.5 mmol/L (8-16); CALCIUM 8.3 mg/dL (8.4-10.2); CREATININE, SERUM 0.73 mg/dL (0.57-1.11); POTASSIUM 3.5 mmol/L (3.5-5.1)
[2022-10-22 23:56] LABS: BACTERIA,URINE FEW /HPF; EPITHELIAL CELLS,URINE MANY /LPF; RENAL EPITHELIAL CELLS,URINE FEW; TRANSITIONAL EPI CELLS,URINE MODERATE
[2022-10-23 00:04] LABS: SALICYLATE < 5.0 mg/dL (0-30)
[2022-10-23 00:09] LABS: FREE THYROXINE INDEX 1.7337 (1.4-3.8)
[2022-10-23] MEDS ORDERED: MULTIVITAMINS- 12 INJECTION 10 ML, FOLIC ACID MDV 1 MG, THIAMINE HCL INJ 100 MG in SODI... IV ONE (00:15)
[2022-10-23] MEDS ORDERED: ONDANSETRON HCL 4 MG ORAL DISINTEGRATING TAB PO ONE (07:30)
[2022-10-23] MEDS ORDERED: CHLORDIAZEPOXIDE HCL 25 MG CAP PO ONE ×2 (12:00→20:00)
[2022-10-23] MEDS ORDERED: CHLORDIAZEPOXIDE HCL 25 MG CAP ONE (12:59)
[2022-10-23] MEDS ORDERED: ONDANSETRON HCL INJ 2MG/ML 2ML 2 MG/ML VIAL IV STA (17:22)
[2022-10-23] MEDS ORDERED: ONDANSETRON HCL INJ 2MG/ML 2ML 2 MG/ML VIAL ONE (17:39)
[2022-10-23 23:22] VITALS: BP 135/86
== END 2022-10-23 23:20 ==
LOC: ER 23:01
DX: F10.129 Alcohol abuse with intoxication, unspecified (principal); E05.90 Thyrotoxicosis, unspecified without thyrotoxic crisis or storm; I10 Essential (primary) hypertension; I48.91 Unspecified atrial fibrillation; F41.9 Anxiety disorder, unspecified; F32.A Depression, unspecified; Z20.822 Contact with and (suspected) exposure to COVID-19; F17.210 Nicotine dependence, cigarettes, uncomplicated
CPT/HCPCS: 36415; 80053; 80307; 80320; 80329 ×2; 81001; 84436; 84443; 84479; 85025; 93005; 99284; J2405; J3411; J7030; Q0162; U0002

== ENCOUNTER → 2023-12-28 | Day surgery (SDC) | payer OTHER ==
[2023-12-26 09:45] LABS: BASOPHILS # (AUTO) 0.1 (0.0-0.1); EOSINOPHILS % 0.1 % (0.0-6.0); HEMATOCRIT 38.9 % (34.2-44.1); HEMOGLOBIN 13.3 g/dL (12.0-16.0); LYMPHOCYTES % 26.1 % (18.0-39.1); MEAN CORPUSCULAR HGB CONC 34.2 g/dL (31-35); MEAN CORPUSCULAR VOLUME 84.7 fL (81-99); MONOCYTES # (AUTO) 0.7 (0.2-0.8); MONOCYTES % 8.4 % (4.4-11.3); NEUTROPHILS % 64.1 % (38.7-80.0); PLATELET COUNT 320 x10e3/uL (140-360); RED BLOOD COUNT 4.59 x10e6/uL (3.6-5.1); RED CELL DISTRIBUTION WIDTH 13.8 % (11.7-14.4); WHITE BLOOD COUNT 7.78 x10e3/uL (4.8-10.8)
[2023-12-26 10:09] LABS: ANION GAP 19.3 mmol/L (8-16); CALCIUM 9.7 mg/dL (8.4-10.2); CREATININE, SERUM 0.85 mg/dL (0.57-1.11); POTASSIUM 4.3 mmol/L (3.5-5.1)
[~2023-12-28] MED LIST changes: +ACETAMINOPHEN 1000 MG/100 ML IV ONE; +ATIVAN0.5 MG PO; +ATIVAN1 MG PO; +B-1100 M1 PO; +BACITRACIN15 GM TOP; +BUPIVACAINE 0.25% 30ML SDV ONE; +BUPIVACAINE HCL 0.5% INJ 30 ML VIAL INJ ONE; +CARAFATE1 GM PO; +CLONAZEPAM0.5 M1 PO; +CLONAZEPAM0.5 MG PO; +DEXAMETHASONE SOD PHOS INJ 4 MG/ML SDV ONE; +DICYCLOMINE HCL20 MG PO; +DISULFIRAM250 MG PO; +EPINEPHRINE HCL 1:1000 1ML 1 MG/ML AMP ONE; +FENTANYL CITRATE/PF 100MCG/2 ML INJ ONE; +FERROUS SU300 MG/51 PO; +FOLIC ACID0.8 MG PO; +HYDROCODON-ACE1 EA12 PO; +HYDROCODONE/APAP 7.5MG-325MG 1 EA TAB ONE; +HYDROMORPHONE 1MG/1ML INJ ONE; +KETOROLAC TROMETHAMINE 30 MG/ML VIAL ONE; +LACTATED RINGER'S 1,000 ML ONE; +LIDOCAINE HCL 2% LOCAL INJ 5 ML SDV VIAL INJ ONE; +MAGNESIUM PO; +MULTI-VITAMIN1 EACH PO; +NEOSTIGMINE 1 MG/ML 10ML VIAL ONE; +NEURONTIN300 MG PO; +ONDANSETRON HCL INJ 2MG/ML 2ML 2 MG/ML VIAL ONE; +OXYCODONE HCL 10 MG TAB CR ONE; +PROPOFOL IV EMULSION 10 MG/ML 20 ML VIAL ONE; +SODIUM CHLORIDE 0.9% 250ML 250 ML ONE; +Vancomycin IV 1 GM VIAL ONE; +ZYPREXA10 MG PO
[2023-12-28] MEDS: HYDROMORPHONE 1MG/1ML INJ IV ONE (13:54)
[2023-12-28] MEDS: FENTANYL CITRATE/PF 100MCG/2 ML INJ IV ONE ×2 (14:30→14:40)
[2023-12-28] MEDS: HYDROCODONE/APAP 7.5MG-325MG 1 EA TAB PO ONE (15:25)
[2023-12-28] MEDS: LABETALOL HCL 5 MG/ML 20ML VIAL IV ONE (15:30)
[2023-12-28 16:10] VITALS: BP 139/94; PULSE 83; RESP 18; O2SAT 96
== END | disposition home or self-care (01) ==
LOC: OR 08:03
PROVIDERS: ATTEND Podiatrist Foot Surgery
DX: S92.351A Displaced fracture of fifth metatarsal bone, right foot, initial encounter for closed fracture (principal); G47.33 Obstructive sleep apnea (adult) (pediatric); I48.91 Unspecified atrial fibrillation; I10 Essential (primary) hypertension; K21.9 Gastro-esophageal reflux disease without esophagitis; F41.9 Anxiety disorder, unspecified; F32.A Depression, unspecified; F17.200 Nicotine dependence, unspecified, uncomplicated; X58.XXXA Exposure to other specified factors, initial encounter; Z88.3 Allergy status to other anti-infective agents; Z88.0 Allergy status to penicillin; Z88.8 Allergy status to other drugs, medicaments and biological substances; Z01.810 Encounter for preprocedural cardiovascular examination; Z01.812 Encounter for preprocedural laboratory examination; Z01.818 Encounter for other preprocedural examination; Z79.899 Other long term (current) drug therapy
CPT/HCPCS: 28485; 36415; 71046; 76000; 80048; 81025; 85025; 93005; C1713 ×4; J0131; J0171; J1100; J1170; J1885; J2001; J2405; J2704; J2710; J3010; J3370; J3490; J7050; J7121

== ENCOUNTER 2024-05-08 13:48 | Inpatient (IN) | payer OTHER ==
[~2024-05-08] VITALS: Ht 175.3 cm; Wt 136.1 kg
[~2024-05-08 13:48] MED LIST changes: -ACETAMINOPHEN 1000 MG/100 ML IV ONE; -BUPIVACAINE 0.25% 30ML SDV ONE; -BUPIVACAINE HCL 0.5% INJ 30 ML VIAL INJ ONE; -DEXAMETHASONE SOD PHOS INJ 4 MG/ML SDV ONE; -EPINEPHRINE HCL 1:1000 1ML 1 MG/ML AMP ONE; -FENTANYL CITRATE/PF 100MCG/2 ML INJ ONE; -HYDROCODONE/APAP 7.5MG-325MG 1 EA TAB ONE; -HYDROMORPHONE 1MG/1ML INJ ONE; -KETOROLAC TROMETHAMINE 30 MG/ML VIAL ONE; -LACTATED RINGER'S 1,000 ML ONE; -LIDOCAINE HCL 2% LOCAL INJ 5 ML SDV VIAL INJ ONE; -NEOSTIGMINE 1 MG/ML 10ML VIAL ONE; -ONDANSETRON HCL INJ 2MG/ML 2ML 2 MG/ML VIAL ONE; -OXYCODONE HCL 10 MG TAB CR ONE; -PROPOFOL IV EMULSION 10 MG/ML 20 ML VIAL ONE; -SODIUM CHLORIDE 0.9% 250ML 250 ML ONE; -Vancomycin IV 1 GM VIAL ONE
[2024-05-08] MEDS ORDERED: DIAZEPAM 5 MG TAB PO ONE (15:00)
[2024-05-08] MEDS: ONDANSETRON HCL INJ 2MG/ML 2ML 2 MG/ML VIAL IV ONE (15:10)
[2024-05-08 15:27] LABS: BASOPHILS % 0.4 % (0.0-1.0); HEMATOCRIT 41.3 % (34.2-44.1); HEMOGLOBIN 13.8 g/dL (12.0-16.0); LYMPHOCYTES # (AUTO) 1.1 (1.0-3.2); LYMPHOCYTES % 15.3 % (18.0-39.1); MEAN CORPUSCULAR HEMOGLOBIN 27.8 pg (28-32); MEAN CORPUSCULAR HGB CONC 33.4 g/dL (31-35); MEAN CORPUSCULAR VOLUME 83.1 fL (81-99); MONOCYTES # (AUTO) 0.2 (0.2-0.8); MONOCYTES % 3.1 % (4.4-11.3); NEUTROPHILS % 81.1 % (38.7-80.0); PLATELET COUNT 199 x10e3/uL (140-360); RED BLOOD COUNT 4.97 x10e6/uL (3.6-5.1); RED CELL DISTRIBUTION WIDTH 16.7 % (11.7-14.4); WHITE BLOOD COUNT 7.45 x10e3/uL (4.8-10.8)
[2024-05-08 15:34] LABS: AMPHETAMINES SCREEN,URINE NEGATIVE (NEGATIVE); BENZODIAZEPINES SCREEN,URINE NEGATIVE (NEGATIVE); CANNABINOIDS SCREEN,URINE POSITIVE (NEGATIVE); METHADONE SCREEN, URINE NEGATIVE (NEGATIVE); OPIATES SCREEN,URINE NEGATIVE (NEGATIVE); PHENCYCLIDINE SCREEN,URINE NEGATIVE (NEGATIVE)
[2024-05-08 15:40] LABS: ALBUMIN 4.1 g/dL (3.5-5.0); ANION GAP 26.8 mmol/L (8-16); BILIRUBIN,TOTAL 0.7 mg/dL (0.2-1.2); CALCIUM 8.5 mg/dL (8.4-10.2); CREATININE, SERUM 0.89 mg/dL (0.57-1.11); ETHANOL 14.5 mg/dL (0.0-10.0); POTASSIUM 3.8 mmol/L (3.5-5.1); TOTAL PROTEIN 8.4 g/dL (6.5-8.1)
[2024-05-08 15:41] LABS: ACETAMINOPHEN < 3.0 ug/mL (10-30); SALICYLATE < 5.0 mg/dL (0-30)
[2024-05-08] MEDS: SODIUM CHLORIDE 0.9% 1000ML 1,000 ML IV ONE ×2 (16:16→17:53)
[2024-05-08] MEDS: DIAZEPAM INJ 5 MG/ML 2 ML IV ONE ×2 (16:16→19:00)
[2024-05-08] MEDS: METOCLOPRAMIDE HCL 10 MG/2ML VIAL IV ONE (17:07)
[2024-05-08] MEDS: PROMETHAZINE 25MG/ NS 50ML (IV) IV ONE (17:53)
[2024-05-08] MEDS: MUPIROCIN 2% OINT 22 GM TUBE TOP SCH (19:02)
[2024-05-08 19:10] VITALS: PULSE 119; RESP 17; TEMP 98.6
[2024-05-08] MEDS: MULTIVITAMINS- 12 INJECTION 10 ML, FOLIC ACID MDV 1 MG, THIAMINE HCL INJ 100 MG in SODI... IV ONE (19:25)
[2024-05-08] MEDS: ONDANSETRON HCL INJ 2MG/ML 2ML 2 MG/ML VIAL IV PRN (19:52)
[2024-05-08 20:00] VITALS: BP 150/96; PULSE 121; RESP 21; TEMP 96.4; TEMP 97.8; O2SAT 98
[2024-05-08] MEDS ORDERED: MAGNESIUM/ALUMINUM/SIMETHICONE 30 ML UDC PO PRN (20:00)
[2024-05-08] MEDS ORDERED: GUAIFENESIN/DEXTROMETHORPHAN LIQD 5 ML UDC PO PRN (20:00)
[2024-05-08] MEDS ORDERED: DOCUSATE SODIUM 100 MG CAP PO PRN (20:00)
[2024-05-08 20:09] LABS: BILIRUBIN,URINE NEGATIVE (NEGATIVE); CLARITY,URINE SL CLOUDY (CLEAR); COLOR,URINE YELLOW (YELLOW); GLUCOSE, URINE NEGATIVE (NEGATIVE); KETONES,URINE 2+ (NEGATIVE); LEUKOCYTE ESTERASE ,URINE NEGATIVE (NEGATIVE); NITRITE,URINE NEGATIVE (NEGATIVE); PH,URINE 6 (5 - 7); PROTEIN,URINE DIPSTICK 2+ (NEGATIVE); URINE UROBILINOGEN 0.2 mg/dL (0.2 - 1)
[2024-05-08 20:22] LABS: BACTERIA,URINE MODERATE /HPF; EPITHELIAL CELLS,URINE FEW /LPF; RBC,URINE 0-5 /HPF (0-5)
[2024-05-08] MEDS: CHLORDIAZEPOXIDE HCL 25 MG CAP PO SCH ×2 (20:27→23:45)
[2024-05-08] MEDS: LORAZEPAM INJ 2 MG/ML VIAL IV PRN (20:28)
[2024-05-08] MEDS: LOSARTAN POTASSIUM 25 MG TAB PO SCH (20:28)
[2024-05-08 20:29] LABS: BLOOD UREA NITROGEN 11 mg/dL (7-26); GLUCOSE 108 mg/dL (74-118); OSMOLALITY,SERUM 276 mOsm/kg (278-305); SODIUM 138 mmol/L (136-145)
[2024-05-08 21:00] VITALS: BP 165/111; PULSE 101; RESP 29; O2SAT 96
[2024-05-08 22:00] VITALS: BP 173/96; PULSE 101; RESP 24; O2SAT 96
[2024-05-08] MEDS: HYDRALAZINE HCL 20 MG/ML VIAL IV PRN (22:09)
[2024-05-08 23:00] VITALS: BP 161/100; PULSE 143; RESP 32; TEMP 97.1; O2SAT 97
[2024-05-09] VITALS (22 sets, daily range): BP systolic 121–174; BP diastolic 69–143; PULSE 89–135; RESP 17–28; TEMP 97.9–98.4; O2SAT 92–99
[2024-05-09] MEDS: SODIUM CHLORIDE 0.9% 1000ML 1,000 ML IV SCH (00:27)
[2024-05-09] MEDS: CHLORDIAZEPOXIDE HCL 25 MG CAP PO SCH (04:25)
[2024-05-09 07:00] LABS: BASOPHILS % 0.6 % (0.0-1.0); EOSINOPHILS % 0.4 % (0.0-6.0); HEMOGLOBIN 11.2 g/dL (12.0-16.0); LYMPHOCYTES # (AUTO) 2.7 (1.0-3.2); LYMPHOCYTES % 37.9 % (18.0-39.1); MEAN CORPUSCULAR HEMOGLOBIN 27.5 pg (28-32); MEAN CORPUSCULAR HGB CONC 32.9 g/dL (31-35); MEAN CORPUSCULAR VOLUME 83.3 fL (81-99); MONOCYTES # (AUTO) 0.6 (0.2-0.8); MONOCYTES % 8.9 % (4.4-11.3); NEUTROPHILS # (AUTO) 3.7 (2.1-6.9); NEUTROPHILS % 52.1 % (38.7-80.0); PLATELET COUNT 122 x10e3/uL (140-360); RED BLOOD COUNT 4.08 x10e6/uL (3.6-5.1); RED CELL DISTRIBUTION WIDTH 16.4 % (11.7-14.4); WHITE BLOOD COUNT 7.08 x10e3/uL (4.8-10.8)
[2024-05-09 07:24] LABS: ALBUMIN 3.3 g/dL (3.5-5.0); ALBUMIN/GLOBULIN RATIO 1.1 (0.8-2.0); ANION GAP 16.6 mmol/L (8-16); BILIRUBIN,TOTAL 1.1 mg/dL (0.2-1.2); CALCIUM 7.6 mg/dL (8.4-10.2); CREATININE, SERUM 0.75 mg/dL (0.57-1.11); TOTAL PROTEIN 6.4 g/dL (6.5-8.1)
[2024-05-09 07:27] LABS: POTASSIUM 2.6 mmol/L (3.5-5.1)
[2024-05-09] MEDS: POTASSIUM CHLORIDE 20 MEQ TAB CR PO STA (08:26)
[2024-05-09] MEDS: THIAMINE HCL 100 MG TAB PO SCH (08:27)
[2024-05-09] MEDS: PANTOPRAZOLE SOD 40 MG TABEC PO SCH (08:27)
[2024-05-09] MEDS: GABAPENTIN 300 MG CAP PO SCH (08:27)
[2024-05-09] MEDS: PROPRANOLOL HCL 60 MG ER CAP PO SCH (08:27)
[2024-05-09] MEDS: MULTIVITAMINS/MINERALS TAB PO SCH (08:28)
[2024-05-09] MEDS: OLANZAPINE 5 MG TAB PO SCH (08:28)
[2024-05-09] MEDS: FOLIC ACID 1 MG TAB PO SCH (08:28)
[2024-05-09] MEDS: CITALOPRAM HYDROBROMIDE 20 MG TAB PO SCH (08:28)
[2024-05-09] MEDS: FERROUS SULFATE 325 MG TAB PO SCH (08:28)
[2024-05-09] MEDS ORDERED: LOSARTAN POTASSIUM 25 MG TAB PO SCH (09:00)
[2024-05-09] MEDS ORDERED: FOLIC ACID 1 MG PO SCH (09:00)
[2024-05-09] MEDS ORDERED: OLANZAPINE 5 MG TAB PO SCH (09:00)
[2024-05-09] MEDS: DEXTROSE 5%/0.9% SOD CHL 1,000 ML IV ONE (09:21)
[2024-05-09 13:47] LABS: ANION GAP 16.1 mmol/L (8-16); CALCIUM 8.1 mg/dL (8.4-10.2); CREATININE, SERUM 0.83 mg/dL (0.57-1.11)
[2024-05-09 13:48] LABS: POTASSIUM 3.1 mmol/L (3.5-5.1)
[2024-05-09] MEDS: POTASSIUM CHLORIDE 20 MEQ TAB CR PO ONE (16:40)
[2024-05-09] MEDS ORDERED: POTASSIUM CHLORIDE 20 MEQ TAB CR PO ONE (17:00)
[2024-05-09] MEDS: REMDESIVIR 100MG 100 MG in SODIUM CHLORIDE 0.9% 100 ML IV SCH (17:44)
[2024-05-09] MEDS: ACETAMINOPHEN 325 MG TAB PO PRN (18:59)
[2024-05-09] MEDS: LORAZEPAM INJ 2 MG/ML VIAL IV PRN (19:34)
[2024-05-09] MEDS: MELATONIN 3 MG TAB PO PRN (21:38)
[2024-05-10] VITALS (15 sets, daily range): BP systolic 86–169; BP diastolic 48–105; PULSE 77–109; RESP 15–29; TEMP 97.9–99.2; O2SAT 93–100
[2024-05-10] MEDS ORDERED: CHLORDIAZEPOXIDE HCL 25 MG CAP PO SCH (05:00)
[2024-05-10] MEDS: CHLORDIAZEPOXIDE HCL 25 MG CAP PO SCH (05:58)
[2024-05-10 06:28] LABS: BASOPHILS % 0.6 % (0.0-1.0); EOSINOPHILS # (AUTO) 0.1 (0.0-0.4); EOSINOPHILS % 2.3 % (0.0-6.0); HEMATOCRIT 34.4 % (34.2-44.1); HEMOGLOBIN 10.7 g/dL (12.0-16.0); LYMPHOCYTES # (AUTO) 2.2 (1.0-3.2); LYMPHOCYTES % 47.1 % (18.0-39.1); MEAN CORPUSCULAR HEMOGLOBIN 27.9 pg (28-32); MEAN CORPUSCULAR HGB CONC 31.1 g/dL (31-35); MEAN CORPUSCULAR VOLUME 89.8 fL (81-99); MONOCYTES # (AUTO) 0.4 (0.2-0.8); MONOCYTES % 8.2 % (4.4-11.3); NEUTROPHILS # (AUTO) 1.9 (2.1-6.9); NEUTROPHILS % 41.2 % (38.7-80.0); PLATELET COUNT 100 x10e3/uL (140-360); RED BLOOD COUNT 3.83 x10e6/uL (3.6-5.1); RED CELL DISTRIBUTION WIDTH 17.3 % (11.7-14.4); WHITE BLOOD COUNT 4.73 x10e3/uL (4.8-10.8)
[2024-05-10 08:00] LABS: ALANINE AMINOTRANSFERASE 32 IU/L (0-55); ALBUMIN 3.5 g/dL (3.5-5.0); ANION GAP 12.8 mmol/L (8-16); BILIRUBIN,TOTAL 0.7 mg/dL (0.2-1.2); BLOOD UREA NITROGEN < 5 mg/dL (7-26); BUN/CREATININE RATIO 7 (6-25); CALCIUM 8.4 mg/dL (8.4-10.2); CARBON DIOXIDE 13 mmol/L (22-29); CHLORIDE 110 mmol/L (98-107); CREATININE, SERUM 0.76 mg/dL (0.57-1.11); EST GLOMERULAR FILTRATION RATE 102 ML/MIN (>=60); GLUCOSE 110 mg/dL (74-118); MAGNESIUM 1.3 MG/DL (1.3-2.1); TOTAL PROTEIN 6.6 g/dL (6.5-8.1)
[2024-05-10 08:01] LABS: ALBUMIN/GLOBULIN RATIO 1.1 (0.8-2.0); ALKALINE PHOSPHATASE 109 IU/L (40-150)
[2024-05-10] MEDS: ZIPRASIDONE 20 MG VIAL IM ONE (15:25)
[2024-05-10] MEDS: REMDESIVIR 100MG 100 MG in SODIUM CHLORIDE 0.9% 100 ML IV SCH (15:26)
[2024-05-10 16:19] LABS: SODIUM 143 mmol/L (136-145)
[2024-05-11] VITALS (9 sets, daily range): BP systolic 127–153; BP diastolic 81–101; PULSE 85–102; RESP 17–22; TEMP 98–98.6; O2SAT 95–99
[2024-05-11 07:45] LABS: ALANINE AMINOTRANSFERASE 34 IU/L (0-55); ALBUMIN 3.3 g/dL (3.5-5.0); ALBUMIN/GLOBULIN RATIO 1.1 (0.8-2.0); ALKALINE PHOSPHATASE 108 IU/L (40-150); ANION GAP 13.3 mmol/L (8-16); BILIRUBIN,TOTAL 0.3 mg/dL (0.2-1.2); BLOOD UREA NITROGEN < 5 mg/dL (7-26); CALCIUM 9.1 mg/dL (8.4-10.2); CARBON DIOXIDE 17 mmol/L (22-29); CHLORIDE 111 mmol/L (98-107); CREATININE, SERUM 0.77 mg/dL (0.57-1.11); EST GLOMERULAR FILTRATION RATE 101 ML/MIN (>=60); GLUCOSE 106 mg/dL (74-118); SODIUM 138 mmol/L (136-145); TOTAL PROTEIN 6.3 g/dL (6.5-8.1)
[2024-05-11 07:48] LABS: BUN/CREATININE RATIO 6 (6-25); POTASSIUM 3.3 mmol/L (3.5-5.1)
[2024-05-11] MEDS: POTASSIUM CHLORIDE 20 MEQ TAB CR PO STA (08:38)
[2024-05-11] MEDS: NICOTINE 14 MG/EA PATCH TOP SCH (08:39)
[2024-05-11] MEDS ORDERED: CHLORDIAZEPOXIDE HCL 25 MG CAP PO SCH (09:00)
[2024-05-11] MEDS: LOPERAMIDE HCL 2 MG CAP PO PRN (09:56)
[2024-05-11] MEDS: LORAZEPAM INJ 2 MG/ML VIAL IV ONE (11:14)
[2024-05-11] MEDS: LORAZEPAM INJ 2 MG/ML VIAL IV PRN (17:01)
[2024-05-12] VITALS (7 sets, daily range): BP systolic 118–151; BP diastolic 76–93; PULSE 90–103; RESP 18–22; TEMP 97.8–98.3; O2SAT 92–99
[2024-05-12] MEDS: CHOLESTYRAMINE 4 GM PACKET PO SCH (21:30)
[2024-05-13 03:00] VITALS: BP 124/75; PULSE 93; RESP 22; TEMP 98; O2SAT 92
[2024-05-13] MEDS: MAGNESIUM SULFATE 2GM/50ML 50 ML IV ONE ×2 (06:26→06:29)
[2024-05-13 06:40] LABS: ALANINE AMINOTRANSFERASE 33 IU/L (0-55); ALBUMIN 3.1 g/dL (3.5-5.0); ALBUMIN/GLOBULIN RATIO 1.1 (0.8-2.0); ALKALINE PHOSPHATASE 87 IU/L (40-150); ANION GAP 13.1 mmol/L (8-16); BILIRUBIN,TOTAL 0.3 mg/dL (0.2-1.2); BLOOD UREA NITROGEN < 5 mg/dL (7-26); CARBON DIOXIDE 23 mmol/L (22-29); CHLORIDE 104 mmol/L (98-107); EST GLOMERULAR FILTRATION RATE 113 ML/MIN (>=60); GLUCOSE 122 mg/dL (74-118); MAGNESIUM 1.2 MG/DL (1.3-2.1); PHOSPHORUS 4.5 MG/DL (2.3-4.7); SODIUM 137 mmol/L (136-145)
[2024-05-13 06:56] LABS: POTASSIUM 3.1 mmol/L (3.5-5.1)
[2024-05-13 06:57] LABS: BUN/CREATININE RATIO 7 (6-25)
[2024-05-13] MEDS ORDERED: CHLORDIAZEPOXID25 MG PO (09:03)
[2024-05-13] MEDS ORDERED: GUAIFENESIN-DM 15 ML PO (09:07)
[2024-05-13] MEDS: MAGNESIUM OXIDE 400 MG TAB PO SCH (09:46)
[2024-05-13 09:50] VITALS: BP 130/85; PULSE 96; RESP 17; RESP 19; TEMP 98.2; TEMP 98.3; O2SAT 95
[2024-05-13] MEDS: POTASSIUM CHLORIDE 20 MEQ TAB CR PO ONE ×2 (11:52→11:54)
[2024-05-13 15:08] VITALS: BP 131/87; PULSE 100; RESP 22; O2SAT 99
== END 2024-05-13 17:22 | DRG 896 ==
LOC: ER 14:31 → ERHOLD 17:21 → ICU 19:33
PROVIDERS: ADMIT Family Medicine Adult Medicine; ATTEND Family Medicine Adult Medicine
PROC: HZ2ZZZZ Detoxification Services for Substance Abuse Treatment (ICD-10-PCS; principal; 2024-05-08)
PROC: XW033E5 Introduction of Remdesivir Anti-infective into Peripheral Vein, Percutaneous Approach, New Technology Group 5 (ICD-10-PCS; 2024-05-10)
DX: F10.231 Alcohol dependence with withdrawal delirium (principal); U07.1 COVID-19; R45.851 Suicidal ideations; E87.29 Other acidosis; E66.01 Morbid (severe) obesity due to excess calories; Z68.41 Body mass index [BMI] 40.0-44.9, adult; F10.280 Alcohol dependence with alcohol-induced anxiety disorder; F25.9 Schizoaffective disorder, unspecified; I10 Essential (primary) hypertension; F32.A Depression, unspecified; F41.9 Anxiety disorder, unspecified; E86.0 Dehydration; K21.9 Gastro-esophageal reflux disease without esophagitis; E87.6 Hypokalemia; K70.0 Alcoholic fatty liver; K29.20 Alcoholic gastritis without bleeding; R53.81 Other malaise; M17.11 Unilateral primary osteoarthritis, right knee; R19.7 Diarrhea, unspecified; F19.10 Other psychoactive substance abuse, uncomplicated; F12.10 Cannabis abuse, uncomplicated; E05.90 Thyrotoxicosis, unspecified without thyrotoxic crisis or storm; Z88.0 Allergy status to penicillin; Z88.8 Allergy status to other drugs, medicaments and biological substances; T42.4X6A Underdosing of benzodiazepines, initial encounter; T45.4X6A Underdosing of iron and its compounds, initial encounter; T44.7X6A Underdosing of beta-adrenoreceptor antagonists, initial encounter; Z91.148 Patient's other noncompliance with medication regimen for other reason; F17.210 Nicotine dependence, cigarettes, uncomplicated
CPT/HCPCS: 0223U; 36415; 80048; 80053; 80307; 80320; 80329; 81001; 82947; 83735; 83930; 84100; 84295; 84443; 84520; 84702; 85025; 93005; 99252; 99284; J0248; J0360; J2060; J2405; J2550; J2765; J3360; J3411; J3475; J3486; J7030; J7042; J7050; U0002

== ENCOUNTER 2024-07-29 06:40 | Inpatient (IN) | payer OTHER ==
[~2024-07-29] VITALS: Ht 175.3 cm; Wt 135.4 kg
[~2024-07-29 06:40] MED LIST changes: +GUAIFENESIN-DM 15 ML PO
[2024-07-29 07:01] VITALS: PULSE 88; RESP 16; TEMP 97.9
[2024-07-29 07:32] LABS: BASOPHILS % 0.4 % (0.0-1.0); HEMATOCRIT 46.8 % (34.2-44.1); HEMOGLOBIN 15.9 g/dL (12.0-16.0); LYMPHOCYTES # (AUTO) 1.8 (1.0-3.2); LYMPHOCYTES % 39.5 % (18.0-39.1); MEAN CORPUSCULAR HEMOGLOBIN 28.5 pg (28-32); MONOCYTES # (AUTO) 0.4 (0.2-0.8); MONOCYTES % 7.7 % (4.4-11.3); NEUTROPHILS # (AUTO) 2.4 (2.1-6.9); NEUTROPHILS % 52.2 % (38.7-80.0); PLATELET COUNT 173 x10e3/uL (140-360); RED BLOOD COUNT 5.57 x10e6/uL (3.6-5.1); RED CELL DISTRIBUTION WIDTH 17.2 % (11.7-14.4); WHITE BLOOD COUNT 4.56 x10e3/uL (4.8-10.8)
[2024-07-29 07:49] LABS: CLARITY,URINE CLOUDY (CLEAR); COLOR,URINE YELLOW (YELLOW); LEUKOCYTE ESTERASE ,URINE NEGATIVE (NEGATIVE); NITRITE,URINE NEGATIVE (NEGATIVE); PH,URINE 7 (5 - 7)
[2024-07-29 07:50] LABS: BILIRUBIN,URINE NEGATIVE (NEGATIVE); GLUCOSE, URINE NEGATIVE (NEGATIVE); KETONES,URINE NEGATIVE (NEGATIVE); PROTEIN,URINE DIPSTICK 1+ (NEGATIVE); URINE UROBILINOGEN 0.2 mg/dL (0.2 - 1)
[2024-07-29 07:53] LABS: ALBUMIN 3.5 g/dL (3.5-5.0); ALBUMIN/GLOBULIN RATIO 0.8 (0.8-2.0); ANION GAP 20.6 mmol/L (8-16); BILIRUBIN,TOTAL 0.7 mg/dL (0.2-1.2); CALCIUM 8.3 mg/dL (8.4-10.2); CREATININE, SERUM 1.39 mg/dL (0.57-1.11); LIPASE 97 U/L (8-78); TOTAL PROTEIN 7.9 g/dL (6.5-8.1)
[2024-07-29 07:56] LABS: POTASSIUM 2.6 mmol/L (3.5-5.1)
[2024-07-29 07:59] LABS: TROPONIN I 0.012 ng/mL (0-0.300)
[2024-07-29 08:20] LABS: BACTERIA,URINE MODERATE /HPF; EPITHELIAL CELLS,URINE MODERATE /LPF
[2024-07-29 08:21] LABS: WBC,URINE (MAN) >50 /HPF (0-5)
[2024-07-29] MEDS: SODIUM CHLORIDE 0.9% 1000ML 1,000 ML IV STA ×2 (08:36→09:51)
[2024-07-29] MEDS: POTASSIUM CHLORIDE 20MEQ/100ML 100 ML IV ONE (08:37)
[2024-07-29] MEDS: ONDANSETRON HCL INJ 2MG/ML 2ML 2 MG/ML VIAL IV STA (08:37)
[2024-07-29] MEDS ORDERED: IOPAMIDOL 370 MG/ML 100 ML INFUS..BTL INJ ONE (09:13)
[2024-07-29] MEDS ORDERED: SODIUM CHLORIDE FLUSH 10 ML SYR INJ PRN (09:15)
[2024-07-29] MEDS: POTASSIUM CHLORIDE 20 MEQ TAB CR PO STA (09:52)
[2024-07-29 10:39] LABS: LYMPHOCYTES % (MANUAL) 32 % (19-48); MONOCYTES % (MANUAL) 8 % (3.4-9.0); NEUTROPHILS % (MANUAL) 60 % (40-74); PLATELET ESTIMATE ADEQUATE; PLATELET MORPHOLOGY COMMENT NORMAL; RBC MORPHOLOGY COMMENT NORMAL
[2024-07-29] MEDS ORDERED: HYDRALAZINE HCL 20 MG/ML VIAL IV PRN (10:45)
[2024-07-29] MEDS ORDERED: ONDANSETRON HCL 4 MG ORAL DISINTEGRATING TAB PO PRN (10:45)
[2024-07-29] MEDS ORDERED: MELATONIN 5 MG TABLET PO PRN (10:45)
[2024-07-29] MEDS: LOSARTAN POTASSIUM 25 MG TAB PO SCH (12:10)
[2024-07-29 14:00] VITALS: BP 147/93; PULSE 83; RESP 18; TEMP 98.1; O2SAT 100
[2024-07-29] MEDS: SODIUM CHLORIDE 0.9% 1000ML 1,000 ML IV SCH (14:16)
[2024-07-29 16:00] VITALS: BP 135/80; PULSE 76; RESP 19; TEMP 98.1; O2SAT 96
[2024-07-29] MEDS ORDERED: LOPERAMIDE HCL 2 MG CAP PO PRN (16:45)
[2024-07-29] MEDS: POTASSIUM CHLORIDE 20MEQ/100ML 100 ML IV SCH (17:52)
[2024-07-29 18:21] VITALS: BP 135/80; PULSE 76; RESP 19; TEMP 98.1; O2SAT 96
[2024-07-29 20:00] VITALS: BP 120/89; PULSE 91; RESP 21; TEMP 99; O2SAT 99
[2024-07-29] MEDS: ONDANSETRON HCL INJ 2MG/ML 2ML 2 MG/ML VIAL IV PRN (20:21)
[2024-07-29] MEDS: BENZONATATE 100 MG CAP PO PRN (20:21)
[2024-07-29] MEDS: ACETAMINOPHEN 325 MG TAB PO PRN (20:22)
[2024-07-29 21:00] VITALS: BP 128/86; PULSE 91; RESP 21; TEMP 99; O2SAT 99
[2024-07-30] VITALS (8 sets, daily range): BP systolic 102–137; BP diastolic 71–99; PULSE 68–83; RESP 18–21; TEMP 97.5–98.1; O2SAT 99–100
[2024-07-30] MEDS: METHOCARBAMOL 500 MG TAB PO PRN (00:03)
[2024-07-30] MEDS: HYDROCODONE/APAP 5MG-325MG TAB PO ONE (00:03)
[2024-07-30 04:29] LABS: HEPATITIS A ANTIBODY IGM (P) NONREACTIVE; HEPATITIS B CORE IGM (P) NONREACTIVE; HEPATITIS B SURFACE AG (P) NONREACTIVE
[2024-07-30 04:30] LABS: HEPATITIS C ANTIBODY NONREACTIVE
[2024-07-30 06:22] LABS: BASOPHILS % 0.6 % (0.0-1.0); HEMATOCRIT 40.1 % (34.2-44.1); HEMOGLOBIN 12.6 g/dL (12.0-16.0); LYMPHOCYTES # (AUTO) 2.1 (1.0-3.2); LYMPHOCYTES % 57.3 % (18.0-39.1); MEAN CORPUSCULAR HEMOGLOBIN 28.7 pg (28-32); MEAN CORPUSCULAR HGB CONC 31.4 g/dL (31-35); MEAN CORPUSCULAR VOLUME 91.3 fL (81-99); MONOCYTES # (AUTO) 0.4 (0.2-0.8); MONOCYTES % 12.3 % (4.4-11.3); NEUTROPHILS # (AUTO) 1.1 (2.1-6.9); NEUTROPHILS % 29.5 % (38.7-80.0); PLATELET COUNT 105 x10e3/uL (140-360); RED BLOOD COUNT 4.39 x10e6/uL (3.6-5.1); RED CELL DISTRIBUTION WIDTH 17.4 % (11.7-14.4); WHITE BLOOD COUNT 3.58 x10e3/uL (4.8-10.8)
[2024-07-30 06:56] LABS: ALANINE AMINOTRANSFERASE 91 IU/L (0-55); ALBUMIN 2.9 g/dL (3.5-5.0); ALBUMIN/GLOBULIN RATIO 0.9 (0.8-2.0); ALKALINE PHOSPHATASE 108 IU/L (40-150); ANION GAP 16.3 mmol/L (8-16); BILIRUBIN,TOTAL 0.5 mg/dL (0.2-1.2); CALCIUM 7.8 mg/dL (8.4-10.2); CARBON DIOXIDE 23 mmol/L (22-29); CHLORIDE 105 mmol/L (98-107); CREATININE, SERUM 0.83 mg/dL (0.57-1.11); EST GLOMERULAR FILTRATION RATE 92 ML/MIN (>=60); GLUCOSE 109 mg/dL (74-118); MAGNESIUM 1.5 MG/DL (1.3-2.1); PHOSPHORUS 3.5 MG/DL (2.3-4.7); SODIUM 141 mmol/L (136-145); TOTAL PROTEIN 6.1 g/dL (6.5-8.1)
[2024-07-30 07:23] LABS: BUN/CREATININE RATIO 6 (6-25); POTASSIUM 3.3 mmol/L (3.5-5.1)
[2024-07-30 07:27] LABS: BLOOD UREA NITROGEN < 5 mg/dL (7-26)
[2024-07-30] MEDS: MAGNESIUM SULFATE 2GM/50ML 50 ML IV ONE (08:24)
[2024-07-30] MEDS: OLANZAPINE 5 MG TAB PO SCH (08:25)
[2024-07-30] MEDS: PANTOPRAZOLE SODIUM 20 MG TABLET.DR PO SCH (08:25)
[2024-07-30] MEDS: POTASSIUM CHLORIDE 10MEQ EA PO ONE (08:26)
[2024-07-30] MEDS: PROPRANOLOL HCL 80 MG CAPCR PO SCH (08:26)
[2024-07-30] MEDS: CITALOPRAM HYDROBROMIDE 20 MG TAB PO SCH (08:27)
[2024-07-31] VITALS (8 sets, daily range): BP systolic 110–146; BP diastolic 92–101; PULSE 62–75; RESP 20–22; TEMP 97.8–98.2; O2SAT 93–99
[2024-07-31 06:46] LABS: BASOPHILS % 0.3 % (0.0-1.0); EOSINOPHILS % 0.3 % (0.0-6.0); HEMATOCRIT 41.7 % (34.2-44.1); HEMOGLOBIN 13.4 g/dL (12.0-16.0); LYMPHOCYTES # (AUTO) 1.8 (1.0-3.2); LYMPHOCYTES % 47.4 % (18.0-39.1); MEAN CORPUSCULAR HEMOGLOBIN 28.8 pg (28-32); MEAN CORPUSCULAR HGB CONC 32.1 g/dL (31-35); MEAN CORPUSCULAR VOLUME 89.5 fL (81-99); MONOCYTES # (AUTO) 0.4 (0.2-0.8); MONOCYTES % 11.2 % (4.4-11.3); NEUTROPHILS # (AUTO) 1.6 (2.1-6.9); NEUTROPHILS % 40.3 % (38.7-80.0); PLATELET COUNT 134 x10e3/uL (140-360); RED BLOOD COUNT 4.66 x10e6/uL (3.6-5.1); RED CELL DISTRIBUTION WIDTH 18.1 % (11.7-14.4); WHITE BLOOD COUNT 3.84 x10e3/uL (4.8-10.8)
[2024-07-31 07:13] LABS: ALANINE AMINOTRANSFERASE 81 IU/L (0-55); ALBUMIN/GLOBULIN RATIO 0.8 (0.8-2.0); ALKALINE PHOSPHATASE 121 IU/L (40-150); ANION GAP 13.1 mmol/L (8-16); BILIRUBIN,TOTAL 0.4 mg/dL (0.2-1.2); BLOOD UREA NITROGEN < 5 mg/dL (7-26); BUN/CREATININE RATIO 7 (6-25); CALCIUM 8.2 mg/dL (8.4-10.2); CARBON DIOXIDE 22 mmol/L (22-29); CHLORIDE 108 mmol/L (98-107); CREATININE, SERUM 0.72 mg/dL (0.57-1.11); EST GLOMERULAR FILTRATION RATE 109 ML/MIN (>=60); GLUCOSE 116 mg/dL (74-118); MAGNESIUM 1.8 MG/DL (1.3-2.1); SODIUM 140 mmol/L (136-145); TOTAL PROTEIN 6.7 g/dL (6.5-8.1)
[2024-07-31 07:15] LABS: POTASSIUM 3.1 mmol/L (3.5-5.1)
[2024-07-31] MEDS ORDERED: LOPERAMIDE HCL 2 MG CAP PO PRN (11:45)
[2024-07-31] MEDS: LOPERAMIDE HCL 2 MG CAP PO ONE (12:22)
[2024-07-31] MEDS: POTASSIUM CHLORIDE 20 MEQ TAB CR PO ONE ×2 (12:22→12:23)
[2024-07-31] MEDS: GUAIFENESIN/DEXTROMETHORPHAN LIQD 5 ML UDC NG PRN (12:22)
[2024-08-01] VITALS: BP 119/75; PULSE 70; RESP 18; TEMP 98.2; O2SAT 97
[2024-08-01 04:00] VITALS: BP 113/81; PULSE 78; RESP 18; TEMP 97.8; O2SAT 96
[2024-08-01 06:33] VITALS: BP 113/81; PULSE 78; RESP 18; TEMP 97.8; O2SAT 96
[2024-08-01 06:54] LABS: BASOPHILS % 0.3 % (0.0-1.0); EOSINOPHILS % 0.3 % (0.0-6.0); HEMATOCRIT 41.2 % (34.2-44.1); HEMOGLOBIN 12.7 g/dL (12.0-16.0); LYMPHOCYTES % 33.7 % (18.0-39.1); MEAN CORPUSCULAR HEMOGLOBIN 28.5 pg (28-32); MEAN CORPUSCULAR HGB CONC 30.8 g/dL (31-35); MEAN CORPUSCULAR VOLUME 92.6 fL (81-99); MONOCYTES # (AUTO) 0.7 (0.2-0.8); MONOCYTES % 11.7 % (4.4-11.3); NEUTROPHILS # (AUTO) 3.2 (2.1-6.9); NEUTROPHILS % 53.8 % (38.7-80.0); PLATELET COUNT 152 x10e3/uL (140-360); RED BLOOD COUNT 4.45 x10e6/uL (3.6-5.1); RED CELL DISTRIBUTION WIDTH 18.1 % (11.7-14.4); WHITE BLOOD COUNT 5.96 x10e3/uL (4.8-10.8)
[2024-08-01 07:06] LABS: ALANINE AMINOTRANSFERASE 63 IU/L (0-55); ALBUMIN 2.9 g/dL (3.5-5.0); ALBUMIN/GLOBULIN RATIO 0.9 (0.8-2.0); ALKALINE PHOSPHATASE 116 IU/L (40-150); ANION GAP 13.5 mmol/L (8-16); BILIRUBIN,TOTAL 0.5 mg/dL (0.2-1.2); BLOOD UREA NITROGEN < 5 mg/dL (7-26); CALCIUM 8.3 mg/dL (8.4-10.2); CARBON DIOXIDE 21 mmol/L (22-29); CHLORIDE 110 mmol/L (98-107); CREATININE, SERUM 0.71 mg/dL (0.57-1.11); EST GLOMERULAR FILTRATION RATE 111 ML/MIN (>=60); GLUCOSE 101 mg/dL (74-118); MAGNESIUM 1.6 MG/DL (1.3-2.1); POTASSIUM 3.5 mmol/L (3.5-5.1); SODIUM 141 mmol/L (136-145); TOTAL PROTEIN 6.3 g/dL (6.5-8.1)
[2024-08-01 07:07] LABS: BUN/CREATININE RATIO 7 (6-25)
[2024-08-01 08:02] VITALS: BP 124/90; PULSE 82; RESP 19; TEMP 98.1; O2SAT 97
[2024-08-01 11:32] VITALS: BP 121/85; PULSE 72; RESP 19; TEMP 97.7; O2SAT 99
[2024-08-01] MEDS: PROPRANOLOL HCL 60 MG ER CAP PO SCH (11:58)
[2024-08-01] MEDS: POTASSIUM CHLORIDE 10MEQ EA PO ONE (11:59)
[2024-08-01] MEDS: MAGNESIUM SULFATE 2GM/50ML 50 ML IV ONE (12:00)
[2024-08-01] MEDS ORDERED: METHOCARBAMOL500 MG PO (15:17)
[2024-08-01] MEDS ORDERED: IMODIUM2 MG PO (15:17)
[2024-08-01] MEDS ORDERED: POTASSIUM CHLO20 ME1 PO (15:18)
[2024-08-01 16:09] VITALS: BP 130/68; PULSE 74; RESP 19; TEMP 97.8; O2SAT 96
== END 2024-08-01 17:23 | disposition home or self-care (01) | DRG 392 ==
LOC: ER 06:45 → ERHOLD 09:14 → MED/SURG3 14:30 → OBSVTOIN 07-30 19:53
PROVIDERS: ADMIT Internal Medicine; ATTEND Internal Medicine
DX: A08.4 Viral intestinal infection, unspecified (principal); E87.1 Hypo-osmolality and hyponatremia; N17.9 Acute kidney failure, unspecified; E66.01 Morbid (severe) obesity due to excess calories; Z68.41 Body mass index [BMI] 40.0-44.9, adult; I10 Essential (primary) hypertension; E87.6 Hypokalemia; R74.8 Abnormal levels of other serum enzymes; F41.1 Generalized anxiety disorder; F25.9 Schizoaffective disorder, unspecified; Z91.410 Personal history of adult physical and sexual abuse; Z88.0 Allergy status to penicillin; Z88.8 Allergy status to other drugs, medicaments and biological substances
CPT/HCPCS: 36415; 71045; 74177; 76700; 80053; 80320; 81001; 82550; 83690; 83735; 84100; 84132; 84484; 84702; 85025; 93005; 99284; G0378; J2405; J2470; J3475; J3480; J7030; Q9967

== ENCOUNTER 2024-08-07 06:53 | Inpatient (IN) | payer OTHER ==
[2024-08-07] VITALS (17 sets, daily range): BP systolic 132–155; BP diastolic 80–130; PULSE 90–121; RESP 11–31; TEMP 98.1–98.5; O2SAT 89–99
[~2024-08-07] VITALS: Ht 175.3 cm; Wt 135.2 kg
[~2024-08-07 06:53] MED LIST changes: +IMODIUM2 MG PO; +METHOCARBAMOL500 MG PO; +POTASSIUM CHLO20 ME1 PO
[2024-08-07] MEDS: SODIUM CHLORIDE 0.9% 1000ML 1,000 ML IV STA ×3 (08:00→08:52)
[2024-08-07] MEDS: ASPIRIN 81 MG CHEW TAB PO ONE (08:02)
[2024-08-07] MEDS: LABETALOL HCL 5 MG/ML 20ML VIAL IV STA (08:03)
[2024-08-07] MEDS: ONDANSETRON HCL INJ 2MG/ML 2ML 2 MG/ML VIAL IV STA (08:03)
[2024-08-07 08:04] LABS: BASOPHILS # (AUTO) 0.1 (0.0-0.1); BASOPHILS % 0.4 % (0.0-1.0); EOSINOPHILS % 0.1 % (0.0-6.0); HEMATOCRIT 45.6 % (34.2-44.1); HEMOGLOBIN 14.5 g/dL (12.0-16.0); LYMPHOCYTES # (AUTO) 1.7 (1.0-3.2); LYMPHOCYTES % 13.3 % (18.0-39.1); MEAN CORPUSCULAR HEMOGLOBIN 28.4 pg (28-32); MEAN CORPUSCULAR HGB CONC 31.8 g/dL (31-35); MEAN CORPUSCULAR VOLUME 89.4 fL (81-99); MONOCYTES % 7.7 % (4.4-11.3); NEUTROPHILS # (AUTO) 10.1 (2.1-6.9); NEUTROPHILS % 78.2 % (38.7-80.0); PLATELET COUNT 572 x10e3/uL (140-360); RED CELL DISTRIBUTION WIDTH 17.5 % (11.7-14.4); WHITE BLOOD COUNT 12.89 x10e3/uL (4.8-10.8)
[2024-08-07 08:18] LABS: AMPHETAMINES SCREEN,URINE NEGATIVE (NEGATIVE); BENZODIAZEPINES SCREEN,URINE NEGATIVE (NEGATIVE); CANNABINOIDS SCREEN,URINE POSITIVE (NEGATIVE); COCAINE SCREEN,URINE NEGATIVE (NEGATIVE); METHADONE SCREEN, URINE NEGATIVE (NEGATIVE); OPIATES SCREEN,URINE NEGATIVE (NEGATIVE); PHENCYCLIDINE SCREEN,URINE NEGATIVE (NEGATIVE)
[2024-08-07 08:21] LABS: INR 0.9; PARTIAL THROMBOPLASTIN TIME 27.4 seconds (23.8-35.5); PROTHROMBIN TIME 12.7 seconds (11.9-14.5)
[2024-08-07 08:25] LABS: ALANINE AMINOTRANSFERASE 27 IU/L (0-55); ALBUMIN 3.4 g/dL (3.5-5.0); ALBUMIN/GLOBULIN RATIO 0.7 (0.8-2.0); ALKALINE PHOSPHATASE 190 IU/L (40-150); ANION GAP 27.2 mmol/L (8-16); BILIRUBIN,TOTAL 0.7 mg/dL (0.2-1.2); BLOOD UREA NITROGEN < 5 mg/dL (7-26); CALCIUM 9.4 mg/dL (8.4-10.2); CARBON DIOXIDE 18 mmol/L (22-29); CHLORIDE 99 mmol/L (98-107); CREATINE KINASE 110 IU/L (29-168); CREATININE, SERUM 0.82 mg/dL (0.57-1.11); EST GLOMERULAR FILTRATION RATE 93 ML/MIN (>=60); GLUCOSE 155 mg/dL (74-118); MAGNESIUM 1.4 MG/DL (1.3-2.1); SODIUM 141 mmol/L (136-145); TOTAL PROTEIN 8.1 g/dL (6.5-8.1)
[2024-08-07 08:26] LABS: BUN/CREATININE RATIO 6 (6-25); POTASSIUM 3.2 mmol/L (3.5-5.1)
[2024-08-07 08:27] LABS: ACETAMINOPHEN < 3.0 ug/mL (10-30); ETHANOL < 10.0 mg/dL (0.0-10.0); SALICYLATE < 5.0 mg/dL (0-30)
[2024-08-07 08:31] LABS: TROPONIN I 0.009 ng/mL (0-0.300)
[2024-08-07 08:36] LABS: CORONAVIRUS COVID-19 AG NEGATIVE (NEGATIVE); INFLUENZA A AG NEGATIVE (NEGATIVE); INFLUENZA B AG NEGATIVE (NEGATIVE)
[2024-08-07 08:37] LABS: B-TYPE NATRIURETIC PEPTIDE2 21.6 pg/mL (0-100)
[2024-08-07] MEDS: LORAZEPAM INJ 2 MG/ML VIAL IV ONE (08:37)
[2024-08-07] MEDS ORDERED: IOPAMIDOL 370 MG/ML 100 ML INFUS..BTL INJ ONE (08:50)
[2024-08-07] MEDS ORDERED: ONDANSETRON HCL INJ 2MG/ML 2ML 2 MG/ML VIAL IV PRN ×2 (09:15→09:30)
[2024-08-07 09:26] LABS: ABG HCO3 23 mmol/L (22-26); ABG PCO2 30 mmHg (35-45); ABG PH 7.48 (7.35-7.45); ABG PO2 69 mmHg (80-105); ABG TCO2 24
[2024-08-07] MEDS ORDERED: BISACODYL 10 MG SUPP PR PRN (09:30)
[2024-08-07] MEDS ORDERED: LORAZEPAM INJ 2 MG/ML VIAL IV PRN (09:30)
[2024-08-07] MEDS ORDERED: HYDROCODONE/APAP 5MG-325MG TAB PO PRN (09:30)
[2024-08-07] MEDS ORDERED: ACETAMINOPHEN 325 MG TAB PO PRN (09:30)
[2024-08-07 10:09] LABS: CLARITY,URINE CLEAR (CLEAR); COLOR,URINE YELLOW (YELLOW); LEUKOCYTE ESTERASE ,URINE NEGATIVE (NEGATIVE); NITRITE,URINE NEGATIVE (NEGATIVE); PH,URINE 7 (5 - 7)
[2024-08-07 10:10] LABS: BACTERIA,URINE FEW /HPF; BILIRUBIN,URINE NEGATIVE (NEGATIVE); EPITHELIAL CELLS,URINE MANY /LPF; GLUCOSE, URINE NEGATIVE (NEGATIVE); KETONES,URINE NEGATIVE (NEGATIVE); PROTEIN,URINE DIPSTICK NEGATIVE (NEGATIVE); RBC,URINE 0-5 /HPF (0-5); URINE UROBILINOGEN 0.2 mg/dL (0.2 - 1); WBC,URINE (MAN) 0-5 /HPF (0-5)
[2024-08-07] MEDS: MULTIVITAMINS- 12 INJECTION 10 ML, FOLIC ACID MDV 1 MG, THIAMINE HCL INJ 100 MG in SODI... IV ONE (10:18)
[2024-08-07] MEDS: Morphine 2mg Syringe 2 MG/ML SYR IV PRN (10:18)
[2024-08-07] MEDS: DIPHENHYDRAMINE HCL INJ 50 MG/ML VIAL IV ONE (11:39)
[2024-08-07] MEDS: METOCLOPRAMIDE HCL 10 MG/2ML VIAL IV ONE (11:40)
[2024-08-07] MEDS: METOPROLOL TARTRATE 25 MG TAB PO ONE (11:42)
[2024-08-07] MEDS: MAGNESIUM SULFATE 2GM/50ML 50 ML IV ONE (14:21)
[2024-08-07] MEDS: POTASSIUM CHLORIDE 10MEQ EA PO ONE (14:22)
[2024-08-07] MEDS: METOPROLOL TARTRATE 25 MG TAB PO SCH (17:27)
[2024-08-07] MEDS: ENOXAPARIN SOD INJ 40 MG/0.4 ML SYR SC SCH (17:28)
[2024-08-07 17:32] LABS: ANION GAP 17.4 mmol/L (8-16); BLOOD UREA NITROGEN < 5 mg/dL (7-26); CALCIUM 8.1 mg/dL (8.4-10.2); CARBON DIOXIDE 22 mmol/L (22-29); CHLORIDE 104 mmol/L (98-107); CREATININE, SERUM 0.67 mg/dL (0.57-1.11); EST GLOMERULAR FILTRATION RATE 114 ML/MIN (>=60); GLUCOSE 104 mg/dL (74-118); SODIUM 140 mmol/L (136-145)
[2024-08-07 17:34] LABS: BUN/CREATININE RATIO 7 (6-25); POTASSIUM 3.4 mmol/L (3.5-5.1)
[2024-08-07 17:51] LABS: TROPONIN I 0.005 ng/mL (0-0.300)
[2024-08-08] VITALS (15 sets, daily range): BP systolic 126–172; BP diastolic 85–114; PULSE 82–105; RESP 15–26; TEMP 98–98.3; O2SAT 85–98
[2024-08-08 04:21] LABS: TROPONIN I 0.008 ng/mL (0-0.300)
[2024-08-08 05:23] LABS: BASOPHILS % 0.5 % (0.0-1.0); EOSINOPHILS # (AUTO) 0.1 (0.0-0.4); EOSINOPHILS % 0.7 % (0.0-6.0); HEMATOCRIT 38.2 % (34.2-44.1); HEMOGLOBIN 11.6 g/dL (12.0-16.0); LYMPHOCYTES # (AUTO) 2.1 (1.0-3.2); LYMPHOCYTES % 26.1 % (18.0-39.1); MEAN CORPUSCULAR HEMOGLOBIN 28.9 pg (28-32); MEAN CORPUSCULAR HGB CONC 30.4 g/dL (31-35); MONOCYTES # (AUTO) 0.6 (0.2-0.8); MONOCYTES % 7.9 % (4.4-11.3); NEUTROPHILS # (AUTO) 5.2 (2.1-6.9); NEUTROPHILS % 64.4 % (38.7-80.0); PLATELET COUNT 368 x10e3/uL (140-360); RED BLOOD COUNT 4.02 x10e6/uL (3.6-5.1); RED CELL DISTRIBUTION WIDTH 17.8 % (11.7-14.4); WHITE BLOOD COUNT 8.11 x10e3/uL (4.8-10.8)
[2024-08-08 05:43] LABS: ALANINE AMINOTRANSFERASE 19 IU/L (0-55); ALBUMIN 2.5 g/dL (3.5-5.0); ALBUMIN/GLOBULIN RATIO 0.8 (0.8-2.0); ALKALINE PHOSPHATASE 141 IU/L (40-150); ANION GAP 14.2 mmol/L (8-16); BILIRUBIN,TOTAL 0.8 mg/dL (0.2-1.2); BLOOD UREA NITROGEN < 5 mg/dL (7-26); CALCIUM 8.2 mg/dL (8.4-10.2); CARBON DIOXIDE 21 mmol/L (22-29); CHLORIDE 106 mmol/L (98-107); CHOL/HDL RATIO 2.8 (3.0-3.6); CHOLESTEROL 115 MD/DL (0-199); CREATININE, SERUM 0.61 mg/dL (0.57-1.11); EST GLOMERULAR FILTRATION RATE 117 ML/MIN (>=60); GLUCOSE 90 mg/dL (74-118); HDL CHOLESTEROL 41 MG/DL (40-60); LDL CHOLESTEROL 38 MG/DL (60-130); SODIUM 138 mmol/L (136-145); TOTAL PROTEIN 5.8 g/dL (6.5-8.1); TRIGLYCERIDES 181 MG/DL (0-149)
[2024-08-08 05:44] LABS: BUN/CREATININE RATIO 8 (6-25); POTASSIUM 3.2 mmol/L (3.5-5.1)
[2024-08-08] MEDS: LABETALOL HCL 5 MG/ML 20ML VIAL IV PRN (07:58)
[2024-08-08] MEDS: DOCUSATE SODIUM 100 MG CAP PO SCH (08:02)
[2024-08-08] MEDS: ASPIRIN 81 MG CHEW TAB PO SCH (08:03)
[2024-08-08] MEDS: THIAMINE HCL 100 MG TAB PO SCH (08:03)
[2024-08-08] MEDS: SENNOSIDES 8.6 MG TAB PO SCH (08:04)
[2024-08-08] MEDS ORDERED: POTASSIUM CHLORIDE 20MEQ/100ML 200 ML IV ONE (09:00)
[2024-08-08] MEDS: POTASSIUM CHLORIDE 20 MEQ TAB CR PO ONE (09:17)
[2024-08-08] MEDS ORDERED: POTASSIUM CHLORIDE 10MEQ EA PO ONE (10:00)
[2024-08-08] MEDS: KETOROLAC TROMETHAMINE 30 MG/ML VIAL IV PRN (13:17)
[2024-08-08 14:34] LABS: ABG HCO3 23 mmol/L (22-26); ABG PCO2 30 mmHg (35-45); ABG PH 7.48 (7.35-7.45); ABG PO2 69 mmHg (80-105); ABG TCO2 24
[2024-08-08] MEDS: METOPROLOL TARTRATE 25 MG TAB PO SCH (20:58)
[2024-08-09] VITALS (7 sets, daily range): BP systolic 137–149; BP diastolic 89–99; PULSE 75–92; RESP 16–20; TEMP 97.9–98.4; O2SAT 96–98
[2024-08-09 06:45] LABS: BASOPHILS # (AUTO) 0.1 (0.0-0.1); BASOPHILS % 0.9 % (0.0-1.0); EOSINOPHILS # (AUTO) 0.1 (0.0-0.4); EOSINOPHILS % 0.8 % (0.0-6.0); HEMATOCRIT 36.7 % (34.2-44.1); HEMOGLOBIN 11.2 g/dL (12.0-16.0); LYMPHOCYTES # (AUTO) 2.2 (1.0-3.2); LYMPHOCYTES % 33.8 % (18.0-39.1); MEAN CORPUSCULAR HEMOGLOBIN 28.6 pg (28-32); MEAN CORPUSCULAR HGB CONC 30.5 g/dL (31-35); MEAN CORPUSCULAR VOLUME 93.6 fL (81-99); MONOCYTES # (AUTO) 0.6 (0.2-0.8); MONOCYTES % 9.3 % (4.4-11.3); NEUTROPHILS # (AUTO) 3.6 (2.1-6.9); NEUTROPHILS % 54.7 % (38.7-80.0); PLATELET COUNT 338 x10e3/uL (140-360); RED BLOOD COUNT 3.92 x10e6/uL (3.6-5.1); RED CELL DISTRIBUTION WIDTH 17.5 % (11.7-14.4); WHITE BLOOD COUNT 6.48 x10e3/uL (4.8-10.8)
[2024-08-09 07:06] LABS: ALANINE AMINOTRANSFERASE 18 IU/L (0-55); ALBUMIN 2.6 g/dL (3.5-5.0); ALBUMIN/GLOBULIN RATIO 0.7 (0.8-2.0); ALKALINE PHOSPHATASE 136 IU/L (40-150); ANION GAP 12.6 mmol/L (8-16); BILIRUBIN,TOTAL 0.5 mg/dL (0.2-1.2); BLOOD UREA NITROGEN < 5 mg/dL (7-26); BUN/CREATININE RATIO 8 (6-25); CALCIUM 8.7 mg/dL (8.4-10.2); CARBON DIOXIDE 25 mmol/L (22-29); CHLORIDE 103 mmol/L (98-107); CREATININE, SERUM 0.66 mg/dL (0.57-1.11); EST GLOMERULAR FILTRATION RATE 114 ML/MIN (>=60); GLUCOSE 84 mg/dL (74-118); POTASSIUM 3.6 mmol/L (3.5-5.1); SODIUM 137 mmol/L (136-145); TOTAL PROTEIN 6.3 g/dL (6.5-8.1)
[2024-08-09 07:26] LABS: FERRITIN 67.43 ng/mL (4.63-204.00)
[2024-08-09] MEDS: MULTIVITAMINS- 12 INJECTION 10 ML, FOLIC ACID MDV 1 MG, THIAMINE HCL INJ 100 MG in SODI... IV SCH (15:12)
[2024-08-10] VITALS: BP 130/94; PULSE 83; RESP 20; TEMP 98.3; O2SAT 97
[2024-08-10] MEDS: SODIUM CHLORIDE 0.9% 1000ML 1,000 ML IV SCH (02:00)
[2024-08-10 04:00] VITALS: BP 138/98; PULSE 75; RESP 21; TEMP 98.3; O2SAT 99
[2024-08-10 08:00] VITALS: BP 141/103; PULSE 76; RESP 18; TEMP 98; O2SAT 99
[2024-08-10] MEDS ORDERED: IOPAMIDOL 370 MG/ML 100 ML INFUS..BTL INJ ONE (09:30)
[2024-08-10 12:21] VITALS: BP 141/102; PULSE 76; RESP 18; TEMP 97.8; O2SAT 98
== END 2024-08-10 16:38 | disposition home or self-care (01) | DRG 871 ==
LOC: ER 06:57 → ERHOLD 09:16 → ICU 11:58 → MED/SURG3 08-08 15:54
PROVIDERS: ADMIT Internal Medicine; ATTEND Internal Medicine
PROC: 3E0333Z Introduction of Anti-inflammatory into Peripheral Vein, Percutaneous Approach (ICD-10-PCS; principal; 2024-08-07)
PROC: HZ2ZZZZ Detoxification Services for Substance Abuse Treatment (ICD-10-PCS; 2024-08-07)
PROC: 02HV33Z Insertion of Infusion Device into Superior Vena Cava, Percutaneous Approach (ICD-10-PCS; 2024-08-07)
PROC: 4A033R1 Measurement of Arterial Saturation, Peripheral, Percutaneous Approach (ICD-10-PCS; 2024-08-07)
DX: A41.59 Other Gram-negative sepsis (principal); J69.0 Pneumonitis due to inhalation of food and vomit; E87.20 Acidosis, unspecified; E87.29 Other acidosis; N39.0 Urinary tract infection, site not specified; N17.9 Acute kidney failure, unspecified; F10.230 Alcohol dependence with withdrawal, uncomplicated; E66.01 Morbid (severe) obesity due to excess calories; Z68.41 Body mass index [BMI] 40.0-44.9, adult; I48.0 Paroxysmal atrial fibrillation; E86.0 Dehydration; F25.9 Schizoaffective disorder, unspecified; I10 Essential (primary) hypertension; F41.9 Anxiety disorder, unspecified; F32.A Depression, unspecified; K21.9 Gastro-esophageal reflux disease without esophagitis; M17.11 Unilateral primary osteoarthritis, right knee; F19.10 Other psychoactive substance abuse, uncomplicated; Z88.0 Allergy status to penicillin; Z88.8 Allergy status to other drugs, medicaments and biological substances; Z87.891 Personal history of nicotine dependence
CPT/HCPCS: 36415; 36569; 36600; 71045; 71260; 74177; 80048; 80053; 80061; 80307; 80320; 80329; 81001; 82550; 82607; 82728; 82805; 83036; 83540; 83605; 83735; 83880; 84443; 84466; 84484; 84702; 85025; 85379; 85610; 85730; 87040; 87086; 87186; 93005; 93970; 99252; 99284; J0696; J1200; J1650; J1885; J2060; J2270; J2405; J2470; J2765; J3411; J3475; J7030; J7050; Q9967

== ENCOUNTER 2024-08-24 21:28 | Inpatient (IN) | payer OTHER ==
[~2024-08-24] VITALS: Ht 175.3 cm; Wt 122.5 kg
[2024-08-24 21:28] VITALS: TEMP 97.6
[2024-08-24] MEDS ORDERED: DILTIAZEM HCL 5 MG/ML 5 ML VIAL IV ONE (21:45)
[2024-08-24] MEDS ORDERED: SODIUM CHLORIDE FLUSH 10 ML SYR IV PRN (21:45)
[2024-08-24 22:15] LABS: INR 0.91; PROTHROMBIN TIME 12.8 seconds (11.9-14.5)
[2024-08-24 22:16] LABS: PARTIAL THROMBOPLASTIN TIME 27.5 seconds (23.8-35.5)
[2024-08-24] MEDS: METOCLOPRAMIDE HCL 10 MG/2ML VIAL IV ONE (22:17)
[2024-08-24] MEDS: SODIUM CHLORIDE 0.9% 1000ML 1,000 ML IV ONE ×2 (22:18)
[2024-08-24 22:19] LABS: BASOPHILS # (AUTO) 0.1 (0.0-0.1); BASOPHILS % 0.5 % (0.0-1.0); HEMATOCRIT 48.3 % (34.2-44.1); HEMOGLOBIN 15.9 g/dL (12.0-16.0); LYMPHOCYTES # (AUTO) 1.6 (1.0-3.2); LYMPHOCYTES % 9.7 % (18.0-39.1); MEAN CORPUSCULAR HEMOGLOBIN 29.7 pg (28-32); MEAN CORPUSCULAR HGB CONC 32.9 g/dL (31-35); MEAN CORPUSCULAR VOLUME 90.3 fL (81-99); MONOCYTES # (AUTO) 0.7 (0.2-0.8); MONOCYTES % 4.4 % (4.4-11.3); NEUTROPHILS # (AUTO) 14.3 (2.1-6.9); PLATELET COUNT 516 x10e3/uL (140-360); RED BLOOD COUNT 5.35 x10e6/uL (3.6-5.1); RED CELL DISTRIBUTION WIDTH 16.3 % (11.7-14.4); WHITE BLOOD COUNT 16.83 x10e3/uL (4.8-10.8)
[2024-08-24 22:31] LABS: TROPONIN I < 0.001 ng/mL (0-0.300)
[2024-08-24 22:48] LABS: AMPHETAMINES SCREEN,URINE NEGATIVE (NEGATIVE); OPIATES SCREEN,URINE NEGATIVE (NEGATIVE); PHENCYCLIDINE SCREEN,URINE NEGATIVE (NEGATIVE)
[2024-08-24 22:49] LABS: BENZODIAZEPINES SCREEN,URINE NEGATIVE (NEGATIVE); CANNABINOIDS SCREEN,URINE POSITIVE (NEGATIVE); COCAINE SCREEN,URINE NEGATIVE (NEGATIVE); METHADONE SCREEN, URINE NEGATIVE (NEGATIVE)
[2024-08-24 23:05] LABS: ALANINE AMINOTRANSFERASE 52 IU/L (0-55); ALBUMIN 3.5 g/dL (3.5-5.0); ALBUMIN/GLOBULIN RATIO 0.8 (0.8-2.0); ALKALINE PHOSPHATASE 176 IU/L (40-150); ANION GAP 29.7 mmol/L (8-16); BILIRUBIN,TOTAL 0.5 mg/dL (0.2-1.2); BLOOD UREA NITROGEN < 5 mg/dL (7-26); CARBON DIOXIDE 15 mmol/L (22-29); CHLORIDE 97 mmol/L (98-107); CREATININE, SERUM 0.91 mg/dL (0.57-1.11); EST GLOMERULAR FILTRATION RATE 82 ML/MIN (>=60); GLUCOSE 146 mg/dL (74-118); SODIUM 139 mmol/L (136-145); TOTAL PROTEIN 7.9 g/dL (6.5-8.1)
[2024-08-24 23:08] LABS: BUN/CREATININE RATIO 5 (6-25); POTASSIUM 2.7 mmol/L (3.5-5.1)
[2024-08-24] MEDS ORDERED: SODIUM CHLORIDE FLUSH 10 ML SYR INJ PRN (23:30)
[2024-08-24] MEDS: KCL 20 MEQ PACKET/ ORAL SOLN PO STA (23:41)
[2024-08-24] MEDS: POTASSIUM CHLORIDE 20MEQ/100ML 200 ML IV ONE (23:42)
[2024-08-24] MEDS: MULTIVITAMINS- 12 INJECTION 10 ML, FOLIC ACID MDV 1 MG, THIAMINE HCL INJ 100 MG in SODI... IV ONE (23:50)
[2024-08-24] MEDS: DIAZEPAM 5 MG TAB PO ONE (23:51)
[2024-08-25] VITALS (24 sets, daily range): BP systolic 135–179; BP diastolic 55–124; PULSE 78–129; RESP 16–31; TEMP 97.7–98.2; O2SAT 91–98
[2024-08-25] MEDS: MAGNESIUM SULFATE 2GM/50ML 50 ML IV ONE (01:24)
[2024-08-25] MEDS: ONDANSETRON HCL INJ 2MG/ML 2ML 2 MG/ML VIAL IV PRN (01:37)
[2024-08-25] MEDS: LORAZEPAM INJ 2 MG/ML VIAL IV PRN (03:05)
[2024-08-25] MEDS ORDERED: LOSARTAN POTASS25 MG PO (03:28)
[2024-08-25] MEDS ORDERED: METOPROLOL TART25 MG PO (03:28)
[2024-08-25] MEDS ORDERED: CELEXA20 MG PO (03:28)
[2024-08-25] MEDS ORDERED: HYDRALAZINE HCL 20 MG/ML VIAL IV PRN (06:45)
[2024-08-25 07:00] LABS: BASOPHILS # (AUTO) 0.1 (0.0-0.1); BASOPHILS % 0.4 % (0.0-1.0); EOSINOPHILS % 0.1 % (0.0-6.0); HEMATOCRIT 38.6 % (34.2-44.1); HEMOGLOBIN 12.4 g/dL (12.0-16.0); LYMPHOCYTES # (AUTO) 3.1 (1.0-3.2); LYMPHOCYTES % 18.8 % (18.0-39.1); MEAN CORPUSCULAR HEMOGLOBIN 29.5 pg (28-32); MEAN CORPUSCULAR HGB CONC 32.1 g/dL (31-35); MEAN CORPUSCULAR VOLUME 91.7 fL (81-99); MONOCYTES # (AUTO) 1.3 (0.2-0.8); MONOCYTES % 7.5 % (4.4-11.3); NEUTROPHILS # (AUTO) 12.1 (2.1-6.9); NEUTROPHILS % 72.9 % (38.7-80.0); PLATELET COUNT 335 x10e3/uL (140-360); RED BLOOD COUNT 4.21 x10e6/uL (3.6-5.1); RED CELL DISTRIBUTION WIDTH 16.4 % (11.7-14.4); WHITE BLOOD COUNT 16.62 x10e3/uL (4.8-10.8)
[2024-08-25] MEDS ORDERED: BISACODYL 10 MG SUPP PR PRN (07:15)
[2024-08-25] MEDS ORDERED: POLYETHYLENE GLYCOL 3350 17 GM PACK PO PRN (07:15)
[2024-08-25] MEDS: METOPROLOL TARTRATE 25 MG TAB PO SCH (07:26)
[2024-08-25 07:51] LABS: TROPONIN I 0.01 ng/mL (0-0.300)
[2024-08-25 08:00] LABS: ALBUMIN 2.9 g/dL (3.5-5.0); ALBUMIN/GLOBULIN RATIO 0.8 (0.8-2.0); ANION GAP 18.9 mmol/L (8-16); BILIRUBIN,TOTAL 1.2 mg/dL (0.2-1.2); CALCIUM 7.9 mg/dL (8.4-10.2); CREATININE, SERUM 0.68 mg/dL (0.57-1.11); TOTAL PROTEIN 6.4 g/dL (6.5-8.1)
[2024-08-25 08:02] LABS: POTASSIUM 2.9 mmol/L (3.5-5.1)
[2024-08-25] MEDS: POTASSIUM CHLORIDE 20MEQ/100ML 200 ML IV ONE (08:29)
[2024-08-25] MEDS: POTASSIUM CHLORIDE 20 MEQ TAB CR PO ONE (08:29)
[2024-08-25 15:08] LABS: ANION GAP 14.9 mmol/L (8-16); CALCIUM 8.2 mg/dL (8.4-10.2); CREATININE, SERUM 0.65 mg/dL (0.57-1.11); POTASSIUM 3.9 mmol/L (3.5-5.1)
[2024-08-25 15:32] LABS: CREATINE KINASE 62 IU/L (29-168)
[2024-08-25 15:41] LABS: TROPONIN I < 0.001 ng/mL (0-0.300)
[2024-08-25 17:13] LABS: BILIRUBIN,URINE NEGATIVE (NEGATIVE); CLARITY,URINE SL CLOUDY (CLEAR); COLOR,URINE YELLOW (YELLOW); GLUCOSE, URINE NEGATIVE (NEGATIVE); KETONES,URINE NEGATIVE (NEGATIVE); LEUKOCYTE ESTERASE ,URINE NEGATIVE (NEGATIVE); NITRITE,URINE NEGATIVE (NEGATIVE); PH,URINE 7 (5 - 7); PROTEIN,URINE DIPSTICK NEGATIVE (NEGATIVE); URINE UROBILINOGEN 0.2 mg/dL (0.2 - 1)
[2024-08-25] MEDS: ENOXAPARIN SOD INJ 40 MG/0.4 ML SYR SC SCH (17:15)
[2024-08-25] MEDS: ACETAMINOPHEN 325 MG TAB PO PRN (17:15)
[2024-08-25 17:37] LABS: EPITHELIAL CELLS,URINE FEW /LPF; RBC,URINE 0-5 /HPF (0-5); WBC,URINE (MAN) 0-5 /HPF (0-5)
[2024-08-26] VITALS (24 sets, daily range): BP systolic 128–162; BP diastolic 75–132; PULSE 86–113; RESP 14–32; TEMP 98–98.3; O2SAT 91–99
[2024-08-26 06:47] LABS: BASOPHILS # (AUTO) 0.1 (0.0-0.1); BASOPHILS % 1.7 % (0.0-1.0); EOSINOPHILS # (AUTO) 0.1 (0.0-0.4); EOSINOPHILS % 1.9 % (0.0-6.0); HEMATOCRIT 35.4 % (34.2-44.1); HEMOGLOBIN 11.6 g/dL (12.0-16.0); LYMPHOCYTES # (AUTO) 2.4 (1.0-3.2); LYMPHOCYTES % 45.5 % (18.0-39.1); MEAN CORPUSCULAR HEMOGLOBIN 29.5 pg (28-32); MEAN CORPUSCULAR HGB CONC 32.8 g/dL (31-35); MEAN CORPUSCULAR VOLUME 90.1 fL (81-99); MONOCYTES # (AUTO) 0.4 (0.2-0.8); MONOCYTES % 7.8 % (4.4-11.3); NEUTROPHILS # (AUTO) 2.2 (2.1-6.9); NEUTROPHILS % 42.9 % (38.7-80.0); PLATELET COUNT 253 x10e3/uL (140-360); RED BLOOD COUNT 3.93 x10e6/uL (3.6-5.1); RED CELL DISTRIBUTION WIDTH 16.1 % (11.7-14.4); WHITE BLOOD COUNT 5.16 x10e3/uL (4.8-10.8)
[2024-08-26 06:48] LABS: CALCIUM IONIZED 1.1 mmol/L (1.09-1.30)
[2024-08-26 07:15] LABS: MAGNESIUM 1.8 MG/DL (1.3-2.1); PHOSPHORUS 3.2 MG/DL (2.3-4.7)
[2024-08-26] MEDS: KETOROLAC TROMETHAMINE 30 MG/ML VIAL IV ONE (08:36)
[2024-08-26] MEDS: MAGNESIUM SULFATE 2GM/50ML 50 ML IV ONE (09:29)
[2024-08-26 09:33] LABS: ANION GAP 14.7 mmol/L (8-16); CALCIUM 8.4 mg/dL (8.4-10.2); CREATININE, SERUM 0.67 mg/dL (0.57-1.11); POTASSIUM 3.7 mmol/L (3.5-5.1)
[2024-08-26] MEDS ORDERED: METOPROLOL TART25 MG PO (12:34)
[2024-08-26] MEDS ORDERED: VITAMIN B-1100 M1 PO (12:34)
[2024-08-26] MEDS ORDERED: LOSARTAN POTASSIUM 25 MG TAB PO SCH (21:00)
[2024-08-28 05:25] LABS: ABG HCO3 26 mmol/L (22-26); ABG PCO2 37 mmHg (35-45); ABG PH 7.47 (7.35-7.45); ABG PO2 73 mmHg (80-105); ABG TCO2 28
== END 2024-08-26 15:30 | disposition home or self-care (01) | DRG 641 ==
LOC: ER 21:34 → ERHOLD 23:33 → ICU 08-25 02:42
PROVIDERS: ADMIT Internal Medicine; ATTEND Internal Medicine
PROC: HZ2ZZZZ Detoxification Services for Substance Abuse Treatment (ICD-10-PCS; 2024-08-24)
PROC: 4A033R1 Measurement of Arterial Saturation, Peripheral, Percutaneous Approach (ICD-10-PCS; principal; 2024-08-26)
DX: E87.29 Other acidosis (principal); F10.239 Alcohol dependence with withdrawal, unspecified; F25.9 Schizoaffective disorder, unspecified; I10 Essential (primary) hypertension; F41.9 Anxiety disorder, unspecified; F32.A Depression, unspecified; K21.9 Gastro-esophageal reflux disease without esophagitis; E05.90 Thyrotoxicosis, unspecified without thyrotoxic crisis or storm; R07.9 Chest pain, unspecified; Y90.4 Blood alcohol level of 80-99 mg/100 ml; K70.0 Alcoholic fatty liver; R00.0 Tachycardia, unspecified; E87.6 Hypokalemia; E66.01 Morbid (severe) obesity due to excess calories; Z68.39 Body mass index [BMI] 39.0-39.9, adult; R94.31 Abnormal electrocardiogram [ECG] [EKG]; Z88.0 Allergy status to penicillin; Z88.8 Allergy status to other drugs, medicaments and biological substances; F12.10 Cannabis abuse, uncomplicated
CPT/HCPCS: 36415; 71045; 80048; 80053; 80307; 80320; 81001; 82550; 82805; 83690; 83735; 83880; 84100; 84484; 84702; 85025; 85610; 85730; 93005; 94760; 99284; J1650; J1885; J2060; J2405; J2470; J2765; J3411; J3475; J3480; J7030